=== PATIENT | female | born 1960 | race Caucasian/White ===

== ENCOUNTER → 2017-06-16 10:17 | Outpatient (CLI) | payer MEDICARE, BC, SELFPAY ==
--- NOTE | 2017-06-16 10:24 | XR_ITS ---
XR chest 2V HISTORY: ITS.REASON: BRONCHITIS ORDERING PHYSICIAN: MAYCO Stephens PATIENT AGE: 57 years COMPARISON: 12/05/2013 FINDINGS: The cardiomediastinal silhouette and pulmonary vascularity are within normal limits. Patchy density is present in the lingula consistent with an area of atelectasis or infiltrate with a slightly elevated left hemidiaphragm.. No acute bony abnormalities. IMPRESSION: Atelectasis or infiltrate within the lingula
== END ==
PROVIDERS: PCP Family Medicine; Visit Provider Physician Assistant
DX: J40 Bronchitis, not specified as acute or chronic (principal)
CPT/HCPCS: 71046; 87070; 87077; 87205

== ENCOUNTER → 2017-06-25 10:56 | Outpatient (CLI) | payer MEDICARE, BC, SELFPAY ==
--- NOTE | 2017-06-25 11:01 | XR_ITS ---
XR chest 2V HISTORY: Follow-up pneumonia ITS.REASON: LINGULAR PNEUMONIA ORDERING PHYSICIAN: MAYCO Stephens PATIENT AGE: 57 years COMPARISON: 06/16/2017 FINDINGS: The cardiomediastinal silhouette and pulmonary vascularity are within normal limits. The lungs are clear without infiltrates, suspicious nodules, or pleural effusions. The lingular pneumonia has improved No acute bony abnormalities. IMPRESSION: Negative chest, no acute finding, resolved lingular pneumonia
== END ==
PROVIDERS: PCP Physician Assistant; Visit Provider Physician Assistant
DX: J18.9 Pneumonia, unspecified organism (principal)
CPT/HCPCS: 71046

== ENCOUNTER → 2017-11-08 13:34 | Outpatient (CLI) | payer MEDICARE, BC, SELFPAY ==
--- NOTE | 2017-11-08 13:43 | XR_ITS ---
XR chest 2V HISTORY: ITS.REASON: DECREASED BREATH SOUNDS ORDERING PHYSICIAN: Darlyn Paul MD PATIENT AGE: 57 years COMPARISON: 06/25/2018 FINDINGS: The cardiomediastinal silhouette and pulmonary vascularity are within normal limits. There is mild hyperinflation. No lobar consolidation or collapse. There is mild coarsening of bronchovascular markings. Minimal atelectatic February changes are present in each are clear space inferiorly. No acute bony anomalies IMPRESSION: Hyperinflation with coarsened bronchovascular markings which may be seen with COPD, asthma, or bronchitis.
== END ==
PROVIDERS: Visit Provider Emergency Medicine
DX: R06.89 Other abnormalities of breathing (principal)
CPT/HCPCS: 71046

== ENCOUNTER → 2017-12-16 08:30 | Outpatient (CLI) | payer MEDICARE, BC, SELFPAY ==
--- NOTE | 2017-12-16 08:33 | CT_ITS ---
CT lung screening EXAM: CT LUNG LOW DOSE WO CONTRAST HISTORY: Asymptomatic with 46 pack-year smoking history ITS.REASON: CURRENT SMOKER ORDERING PHYSICIAN: Keke Young MD PATIENT AGE: 57 years COMPARISON: None TECHNIQUE: The exam was performed on a GE Light Speed [address] scanner using 2.90 mGy CTDI. A low dose helical CT CHEST was performed on a multi-detector scanner. All CT scans at the facility use one or more dose reduction, viz: automated exposure control, ma/kV adjustment per patient size (including targeted exams where dose is matched to indication, i.e. head), or iterative reconstruction technique. The LDCT was performed in a facility that meets the criteria for the screening program. Data regarding this exam was submitted to ACR which is an approved registry. The order for this exam indicates that it came as a result of a lung cancer screening counseling shard decision-making visit that included all the elements required of such a visit including smoking cessation. The radiologist interpreting this exam meets the [facility] criteria for the LDCT lung cancer screening program. The exam is reported using the Lung-RADS classification scale and reported to the ACR registry. NOTE: This study was performed for the specific purposes of lung cancer screening and is not an alternative to diagnostic chest CT. RADIATION DOSE: CTDI vol(CT dose Index-volume) = 2.90mG DLP (Dose Length Product) = 90.38 mGcm FINDINGS: There are scattered centrilobular groundglass opacities in both upper lobes and in the superior segment of both lower lobes. These measure up to 8 mm.. There are centrilobular emphysematous changes. No effusions. Scattered small nodes are present in the mediastinum. Mild bronchial thickening noted. IMPRESSION: 1. Lung RADS Category: 4, mildly suspicious/indeterminate regarding the scattered centrilobular groundglass nodules. This could be postinflammatory or infectious in nature. One cannot exclude the possibility of a neoplastic process. Therefore, three-month CT follow-up is suggested without and with contrast. If patient has signs and symptoms of pneumonia then would suggest treatment 2. Other findings: No other pertinent findings evident RECOMMENDATIONS: [address] without and with contrast
--- NOTE | 2017-12-16 08:33 | MM_ITS ---
MM Dig screening mamm BI w/CAD CAD Screening COMPARISON: Digital mammograms 01/13/2013 INDICATION: There is no personal or family history of breast cancer. There is been previous bilateral breast reduction surgery TECHNIQUE: Standard CC and MLO images were obtained. R2 CAD reviewed. FINDINGS: Moderate fibroglandular densities are seen in the central portions of both breasts. There is very little post surgical scarring in either breast. There are few scattered benign-appearing calcifications in each breast. There is no suspicious lesion and no suspicious microcalcifications. IMPRESSION: Fibrofatty parenchyma no suspicious lesion seen BI-RADS Category: 2 Benign Finding(s) RECOMMENDED FOLLOW-UP: 1YR - 1 YEAR FOLLOW-UP (A letter has been sent to the patient regarding results of the study.)
--- NOTE | 2017-12-16 08:34 | XR_ITS ---
XR DEXA axial skeleton HISTORY: ITS.REASON: POSTMENOPAUSAL ORDERING PHYSICIAN: Keke Young MD PATIENT AGE: 57 years COMPARISON: 01/13/2013 FINDINGS: The BMD measured at the Left femoral neck is 0.933 g/cm squared with a T score of -0.8. This is considered Normal according to the World Health Organization criteria. Fracture risk is low. Treatment is advised. L1 L4 density is a T score of -0.6 and has decreased by 1.7%. The hip density has decreased by 4%. IMPRESSION: Normal bone density with low fracture risk. Recommend follow-up exam December 2019
== END ==
PROVIDERS: PCP Physician Assistant; Visit Provider Family Medicine
DX: Z12.31 Encounter for screening mammogram for malignant neoplasm of breast (principal); Z78.0 Asymptomatic menopausal state; Z87.891 Personal history of nicotine dependence; Z12.2 Encounter for screening for malignant neoplasm of respiratory organs
CPT/HCPCS: 77067; 77080

== ENCOUNTER → 2018-01-24 08:53 | Outpatient (CLI) | payer MEDICARE, BC, SELFPAY | PROVIDERS: PCP Family Medicine; Visit Provider Family Medicine | DX: R07.9 Chest pain, unspecified (principal) | CPT/HCPCS: 93017 ==

== ENCOUNTER → 2018-12-01 15:14 | Outpatient (CLI) | payer MEDICARE, BC, SELFPAY ==
--- NOTE | 2018-12-01 15:25 | XR_ITS ---
PROCEDURE: XR CHEST 2V CLINICAL HISTORY: COPD Cough, shortness of air, smoker COMPARISON: CXR2V XR chest 2V from 06/16/2017 CXR2V XR chest 2V from 06/25/2017 CXR2V XR chest 2V from 11/08/2017 FINDINGS: The cardiomediastinal silhouette and pulmonary vascularity are within normal limits. There is mild coarsening of the bronchovascular markings which may be related to chronic peribronchial inflammatory change. No lobar consolidation or collapse. No acute bony abnormalities. IMPRESSION: Chronic changes, no change from 11/08/2017 with no acute finding Dictated by: Neo Hawkins MD 12/01/2018 17:45 Signed by: <Electronically signed by Neo Hawkins MD in [place]> 12/01/2018 17:45
== END ==
PROVIDERS: PCP Family Medicine; Visit Provider Emergency Medicine
DX: J44.1 Chronic obstructive pulmonary disease with (acute) exacerbation (principal)
CPT/HCPCS: 71046

== ENCOUNTER → 2020-12-04 11:18 | Outpatient (CLI) | payer MEDICARE, BC, SELFPAY ==
[2020-12-04 12:42] LABS: Blood Urea Nitrogen 7 mg/dl (7-17); Estimated Glomerular Filt Rate 73 ml/min (>60); GFR (African American) 88 ML/MIN (>60)
--- NOTE | 2020-12-04 14:19 | CT_ITS ---
PROCEDURE: CT ABDOMEN PELVIS W CON CLINICAL INDICATION: RLQ ABD PAIN COMPARISON: CT ABDPELW CT ABD PELVIS W/ CONTRAST from 01/19/2013 TECHNIQUE: IV Contrast: 75ML Isovue 370 Oral Contrast None Axial images obtained with sagittal and coronal reformats. All CT scans at the facility use one or more dose reduction, viz: automated exposure control, ma/kV adjustment per patient size (including targeted exams where dose is matched to indication, i.e. head), or iterative reconstruction technique. FINDINGS: The liver, gallbladder, spleen and pancreas have an unremarkable appearance. In the upper pole of the right kidney posteriorly there is an ill-defined 2 cm hypodensity. In the mid polar region of the right kidney anteriorly there is a 2.5 cm area of decreased density and in the lower pole of the right kidney there is a 1.5 cm area of decreased attenuation. The left kidney has an unremarkable appearance. There is some minimal haziness of the anterior pararenal fat on the right medially. There is mild dilatation of the infrarenal abdominal aorta at 2.5 cm. No intestinal obstruction or free air. The appendix is not clearly delineated. There is chris colonic diverticulosis. No evidence of diverticulitis. No pelvic mass or abnormal fluid collection apparent. There is mild thickening of the urinary bladder which may be due to nondistention. The bowel gas pattern is nonspecific with nondistended air-fluid levels within the small bowel which could be seen with ileus or enteritis. No evidence of bowel obstruction. Oral contrast was given most of which is in the colon. No acute bony finding. IMPRESSION: 1. There are at least 3 hypodense areas of the right kidney. This could be due to right-sided pyelonephritis. Please correlate with clinical parameters. Neoplastic masses of the right kidney is not excluded imaging vega. 2. The appendix is not clearly identified. No evidence of appendicitis. 3. Pancolonic diverticulosis. No evidence of diverticulitis. 4. Scattered air-fluid levels within nondistended small bowel nonspecific but could be seen with enteritis or ileus. Dictated by: Neo Hawkins MD 12/04/2020 15:15 Neo Hawkins MD in [place] 12/04/2020 15:15
== END ==
PROVIDERS: PCP Family Medicine; Visit Provider Nurse Practitioner Family
DX: R10.31 Right lower quadrant pain (principal)
CPT/HCPCS: 36415; 74177; 82565; 84520; Q9967

== ENCOUNTER → 2020-12-23 13:01 | Outpatient (CLI) | payer MEDICARE, BC, SELFPAY ==
--- NOTE | 2020-12-23 13:01 | MM_ITS ---
PROCEDURE: MM DIG SCREENING MAMM BI W/CAD Digital Breast Tomosynthesis Included CLINICAL INDICATION: screening xmg There is no personal or family history of breast cancer. There has been previous bilateral breast reduction surgery COMPARISON: MG DMSB DIG MAMM-SCREEN JEAN from 01/13/2013 MG [facility] MM Dig screening mamm BI w/CAD from 12/16/2017 TECHNIQUE: Standard CC and MLO images and 3D Tomosynthesis was obtained. R2 CAD reviewed. FINDINGS: Mild to moderate scattered fibroglandular densities are seen throughout both breasts. Couple of benign-appearing microcalcifications right breast. There is very little if any post surgical scarring in either breast. A single CAD marking left breast was reviewed and appears to be benign. There is no suspicious lesion and no suspicious microcalcifications. IMPRESSION: Fibrofatty parenchyma with no suspicious lesions seen BI-RAD Category: 2 Benign Finding(s) FOLLOW-UP: 1YR 1 Year Follow-up (A letter has been sent to the patient regarding results of the study.) Dictated by: Dr. Bashir Collins MD 01/09/2021 08:29 Dr. Bashir Collins MD in [place] 01/09/2021 08:29
--- NOTE | 2020-12-23 13:02 | US_ITS ---
PROCEDURE: US TRANSVAGINAL CLINICAL INDICATION: post menopausal bleeding COMPARISON: US PTV US PELVIS-TRANSVAGINAL ONLY from 01/13/2013 FINDINGS: This exam is very limited technically. The fundus of the uterus is not well demonstrated. That is the area of the previously noted fibroid on 01/13/2013. MRI of the pelvis may provide further evaluation. The right ovary is not demonstrated. UTERUS: 6cm x 3cmx 3cm with a combined endometrial thickness of 2.2mm LEFT OVARY: [id number] with a volume of 2.2ml. No cul-de-sac fluid. IMPRESSION: Limited pelvic ultrasound with the uterine fundus not well demonstrated. Consider MRI for further evaluation. The right ovary also is not seen. No acute finding apparent. Dictated by: Neo Hawkins MD 12/24/2020 17:55 Neo Hawkins MD in [place] 12/24/2020 17:55
== END ==
PROVIDERS: PCP Family Medicine; Visit Provider Nurse Practitioner Obstetrics & Gynecology
DX: Z12.31 Encounter for screening mammogram for malignant neoplasm of breast (principal); N95.0 Postmenopausal bleeding
CPT/HCPCS: 76830; 77063; 77067

== ENCOUNTER → 2021-03-01 10:35 | Outpatient (CLI) | payer MEDICARE, BC, SELFPAY ==
--- NOTE | 2021-03-01 10:48 | XR_ITS ---
PROCEDURE INFORMATION: Exam: XR Chest Exam date and time: 03/01/2021 10:48 AM Age: 60 years old Clinical indication: Shortness of breath; Additional info: Sob- covid patient TECHNIQUE: Imaging protocol: XR of the chest. Views: 1 view. COMPARISON: CR XR CHEST 2V 12/01/2018 3:28 PM FINDINGS: Lungs: Mild left basilar airspace opacity, may be early pneumonia. Right lung clear. Pleural spaces: Unremarkable. No pleural effusion. No pneumothorax. Heart/Mediastinum: Unremarkable. No cardiomegaly. Bones/joints: Unremarkable. IMPRESSION: Mild left basilar airspace opacity, may be early pneumonia.
[2021-03-01 12:16] LABS: Basophils # 0.1 K/mm3 (0-0.2); Basophils % 0.4 % (0.1-2.0); Eosinophils % 0.1 % (0.1-12.0); Hematocrit 44.5 % (37.0-47.0); Hemoglobin 15.6 g/dL (12.2-16.2); Lymphocytes # 3.3 K/mm3 (0.7-4.5); Lymphocytes % 19.5 % (10-50); Mean Corpuscular Hemoglobin 30.9 pg (27.0-31.2); Mean Corpuscular Volume 88.1 fl (81-99); Mean Platelet Volume 9.2 fl (7.4-10.4); Monocytes # 0.5 K/mm3 (0.1-1.0); Neutrophils # 13.1 K/mm3 (1.8-7.8); Platelet Count 366 K/mm3 (142-424); Red Blood Count 5.05 M/mm3 (4.20-5.40); Red Cell Distribution Width 14.4 % (11.5-17.5)
[2021-03-01 12:31] LABS: MANUAL DIFFERENTIAL MANUAL DIFFERENTIAL (MANUAL DIFF)
[2021-03-01 14:33] LABS: Lymphocytes % 21 % (10-50); Monocytes % 3 % (2-9); Neutrophils % 76 % (42-76); Platelet Estimate Normal; RBC Morphology Normal; Total Cells Counted 100
== END ==
PROVIDERS: PCP Family Medicine; Visit Provider Nurse Practitioner
DX: Z01.818 Encounter for other preprocedural examination (principal); Z20.822 Contact with and (suspected) exposure to COVID-19
CPT/HCPCS: 36415; 71045; 85007; 85025

== ENCOUNTER → 2022-07-08 13:48 | Outpatient (CLI) | payer MEDICARE, BC, SELFPAY ==
--- NOTE | 2022-07-08 13:57 | XR_ITS ---
FINAL REPORT TECHNIQUE: Chest PA & Lateral CLINICAL HISTORY: COPD COMPARISON: 03/01/2021 FINDINGS: 2 views of the chest were performed. The heart size is normal. The mediastinum is within normal limits. There is no acute cardiopulmonary process. There is scarring in the left upper lobe. There are no pleural effusions. There is no pneumothorax. The bony thorax appears intact. IMPRESSION: No acute cardiopulmonary process. Reviewed, Interpreted and Dictated by Sj Hallman MD Transcribed by Angela Tucker Authenticated and [facility]
== END ==
PROVIDERS: PCP Physician Assistant; Visit Provider Physician Assistant
DX: J44.1 Chronic obstructive pulmonary disease with (acute) exacerbation (principal)
CPT/HCPCS: 71046

== ENCOUNTER → 2022-07-13 10:46 | Outpatient (CLI) | payer MEDICARE, BC, SELFPAY | PROVIDERS: PCP Physician Assistant; Visit Provider Physician Assistant | DX: J44.1 Chronic obstructive pulmonary disease with (acute) exacerbation (principal) | CPT/HCPCS: 94060 ==

== ENCOUNTER 2022-12-20 08:57 | Emergency (ER) | payer MEDICARE, BC, SELFPAY ==
[2022-12-20 09:15] VITALS: BP 136/67; PULSE 71; RESP 18; TEMP 36.6; O2SAT 98; BMI 34.5
--- NOTE | 2022-12-20 09:45 | EXP.UTC ---
Discharge Plan Disposition Patient Disposition: Home, Self-Care Condition: Good Prescriptions Prescriptions: New methylprednisolone [Medrol (Lenny)] 4 mg tablets,dose pack See Rx Instructions .Route .COMPLEX 6 Days Qty: 21 0RF Rx Instructions: taper pack; No Action aripiprazole 5 mg tablet 5 mg PO DAILY Qty: 30 lisinopril 2.5 mg tablet 2.5 mg PO DAILY Qty: 30 bisoprolol fumarate 5 mg tablet 5 mg PO DAILY Qty: 15 meloxicam 15 mg tablet 15 mg PO DAILY budesonide-formoterol [Symbicort] 160-4.5 mcg/actuation HFA aerosol inhaler 2 puff INHALATION BID venlafaxine 150 mg capsule,extended release 24hr 150 mg PO DAILY cyclobenzaprine 10 mg Tablet 10 mg PO BID PRN (Reason: Muscle Spasm) Qty: 20 2RF Referrals Follow up/Referrals: Frances Butterfield PA [Primary Care Provider] - See instructions Activity Restrictions/Add. Instructions Additional Instructions/Restrictions: Continue taking Flexeril as prescribe Start oral Medrol dose pack tomorrow Follow up with your Family Doctor if no improvement or any worsening of symptoms Return if needed Straight to ER if any life threatening symptoms Clinical Impressions Clinical Impression: Low back pain with sciatica Qualifiers: Chronicity: unspecified Back pain laterality: right Sciatica laterality: sciatica of right side Qualified Code(s): M54.41 - Lumbago with sciatica, right side Instructions Patient Instructions: DI for Sciatica, DI for Back Pain With Sciatica, Methylprednisolone Discharge ED Provider: Carmelina Bartholomew [facility] General Stated complaint: back pain, no accident Mode of Arrival: Ambulatory Source of Information: Patient Limitations: No Limitations Time Seen by Provider: 12/20/22 09:51 HEENT Symptoms (Recalled from RN notes): No Resp Symptoms (Recalled from RN notes): No Skin Symptoms (Recalled from RN notes): No MS Symptoms (Recalled from RN notes): Yes Functional Status (Recalled from RN notes): n/a History of Present Illness Provider Complaint: Patient states that she has been having pain in her right lower back area since Wed States that now it is going down into her buttock area and upper leg Denies known injury States that she thought she pulled a muscle and has been on Flexeril but not helped much Denies loss of control of bowel or bladder Related Data Home Medications Medication Instructions Recorded Confirmed aripiprazole 5 mg tablet 5 mg PO DAILY . #30 tabs 08/01/18 12/20/22 bisoprolol fumarate 5 mg tablet 5 mg PO DAILY . #15 tabs 08/01/18 12/20/22 lisinopril 2.5 mg tablet 2.5 mg PO DAILY . #30 tabs 08/01/18 12/20/22 budesonide-formoterol HFA 160 2 puff inhalation BID 12/12/20 12/31/20 mcg-4.5 mcg/actuation aerosol inhaler (Symbicort) meloxicam 15 mg tablet 15 mg PO DAILY . 12/12/20 12/20/22 venlafaxine 150 mg 150 mg PO DAILY . 12/31/20 12/20/22 capsule,extended release 24 hr Previous Rx's Medication Instructions Recorded cyclobenzaprine 10 mg tablet 10 mg PO BID PRN Muscle Spasm #20 12/17/22 tabs methylprednisolone 4 mg tablets in See Rx Instructions .Route 12/20/22 a dose pack (Medrol (Lenny)) .COMPLEX 6 days #21 tabs Allergies Allergy/AdvReac Type Severity Reaction Status Date / Time No Known Allergies Allergy Verified 12/20/22 09:29 Worker's Comp Is this a Worker's Comp case?: No [facility] Disclaimer: The information contained in this section may have been updated after the patient was seen, as this information can be updated by other users. Social History Smoking Status: Current every day smoker tobacco type: cigarettes packs per day: 1 alcohol intake: current substance use type: denies use current occupational status: retired and disabled Travel in the last 8 weeks: None household members: spouse housing: house ROS Obtained: Yes All systems reviewed & no additional complaints except as d
[2022-12-20 10:16] VITALS: BP 136/67; PULSE 71; RESP 18; TEMP 36.6; O2SAT 98
== END 2022-12-20 10:16 | disposition home or self-care (01) ==
PROVIDERS: Emergency Provider Nurse Practitioner; PCP Physician Assistant
DX: M54.41 Lumbago with sciatica, right side (principal); F17.210 Nicotine dependence, cigarettes, uncomplicated
CPT/HCPCS: 96372; 99204; 99212; G0463

== ENCOUNTER 2023-01-13 08:06 | Emergency (ER) | payer MEDICARE, BC, SELFPAY ==
[2023-01-13 08:10] VITALS: BP 141/73; PULSE 77; RESP 18; TEMP 36.7; O2SAT 96; BMI 33.8
--- NOTE | 2023-01-13 08:10 | XR_ITS ---
FINAL REPORT CLINICAL HISTORY: Nonspecific cough COMPARISON: 07/08/2022 FINDINGS: Two views of the chest were obtained. The heart size and pulmonary vascularity are within normal limits. The mediastinum is normal. There is mild atelectasis or scar in the lung bases. There is no pneumothorax. The bony thorax is intact. IMPRESSION: Mild atelectasis or scar in the lung bases. Reviewed, Interpreted and Dictated by Omar Wolf III, MD Transcribed by Angela Tucker Authenticated and [facility]
--- NOTE | 2023-01-13 08:35 | EXP.UTC ---
Discharge Plan Disposition Patient Disposition: Home, Self-Care Condition: Good Prescriptions Prescriptions: New azithromycin [azithromycin] 250 mg tablet 250 mg PO DIRECTED Qty: 6 0RF Rx Instructions: Take two (2) tablets on day #1, then one (1) tablet day #2 thru #5 benzonatate 100 mg capsule 100 mg PO BID PRN (Reason: cough) Qty: 14 0RF prednisone [prednisone] 20 mg tablet 20 mg PO BID Qty: 10 0RF Rx Instructions: start tomorrow fluticasone propion-salmeterol [Advair Diskus] 100-50 mcg/dose blister with device 1 inh inhalation BID Qty: 60 0RF Combivent Respimat 20-100 mcg/actuation mist 1 puff inhalation QID Qty: 4 0RF Rx Instructions: space evenly during waking hours albuterol sulfate 2.5 mg /3 mL (0.083 %) solution for nebulization 2.5 mg inhalation QID PRN (Reason: shortness of breath or wheezing) Qty: 90 0RF (DME) nebulizer and compressor Device See Rx Instructions .Route Qty: 1 0RF Rx Instructions: As directed Discontinued budesonide-formoterol [Symbicort] 160-4.5 mcg/actuation HFA aerosol inhaler 2 puff INHALATION BID No Action aripiprazole 5 mg tablet 5 mg PO DAILY Qty: 30 lisinopril 2.5 mg tablet 2.5 mg PO DAILY Qty: 30 bisoprolol fumarate 5 mg tablet 5 mg PO DAILY Qty: 15 venlafaxine 150 mg capsule,extended release 24hr 150 mg PO DAILY Referrals Follow up/Referrals: Frances Butterfield PA [Primary Care Provider] - See instructions Activity Restrictions/Add. Instructions Additional Instructions/Restrictions: Start antibiotic today. Be sure to complete entire prescription even if feeling better Tylenol and ibuprofen as needed for pain or fever Humidifier/vaporizer/hot steamy shower Follow-up with primary care tomorrow. Follow-up immediately in the ER of the [facility] for new or worsening symptoms or no noticeable improvement over the next 48-72 hours. Stop smoking Inhaler every 4-6 hours as needed. Should help open airways improved cough, wheezing, shortness of breath Hay Benjamin will not cause drowsiness to use at bedtime to help stop cough so that she can get some sleep Start steroids today. Helps with inflammation therefore coughing and wheezing. Follow directions on package. Clinical Impressions Clinical Impression: COPD with acute exacerbation Instructions Patient Instructions: Chronic Obstructive Pulmonary Disease, DI for Chronic Obstructive Pulmonary Disease Discharge ED Provider: Baron ([facility])Sharita [facility] HPI General Stated complaint: cough Mode of Arrival: Ambulatory Source of Information: Patient Limitations: No Limitations Time Seen by Provider: 01/13/23 08:36 Description of Symptoms (Recalled from Triage Doc. by RN): Pt stated that wednesday she started with cough, upper chest congestion, and wheezing. HEENT Symptoms (Recalled from RN notes): Yes Resp Symptoms (Recalled from RN notes): No Skin Symptoms (Recalled from RN notes): No MS Symptoms (Recalled from RN notes): No Functional Status (Recalled from RN notes): n/a History of Present Illness Provider Complaint: 62 yr old female presents for soa, wheezing,cough and chest congestion. Related Data Home Medications Medication Instructions Recorded Confirmed aripiprazole 5 mg tablet 5 mg PO DAILY . #30 tabs 08/01/18 01/13/23 bisoprolol fumarate 5 mg tablet 5 mg PO DAILY . #15 tabs 08/01/18 01/13/23 lisinopril 2.5 mg tablet 2.5 mg PO DAILY . #30 tabs 08/01/18 01/13/23 venlafaxine 150 mg 150 mg PO DAILY . 12/31/20 01/13/23 capsule,extended release 24 hr Previous Rx's Medication Instructions Recorded albuterol sulfate 2.5 mg/3 mL 2.5 mg (3 mL) inhalation QID PRN 01/13/23 (0.083 %) solution for nebulization shortness of breath or wheezing #90 mL azithromycin 250 mg tablet 250 mg PO DIRECTED #6 tabs 01/13/23 benzonatate 100 mg capsule 100 mg PO BID PRN cough #14 caps 01/13/23 fluticasone 100 mcg-salmeterol 50 1 inh inhala
[2023-01-13 09:18] VITALS: BP 141/73; PULSE 77; RESP 18; TEMP 36.7; O2SAT 96
== END 2023-01-13 09:18 | disposition home or self-care (01) ==
PROVIDERS: Emergency Provider Nurse Practitioner Family; PCP Physician Assistant
DX: J44.1 Chronic obstructive pulmonary disease with (acute) exacerbation (principal); F17.210 Nicotine dependence, cigarettes, uncomplicated
CPT/HCPCS: 71046; 96372; 99212; 99214; G0463

== ENCOUNTER 2023-02-14 07:04 | Emergency (ER) | payer MEDICARE, BC, SELFPAY ==
[2023-02-14 07:05] VITALS: BP 108/69; PULSE 88; RESP 16; TEMP 36.7; O2SAT 98; BMI 35.3
[2023-02-14 07:23] VITALS: BP 108/69
--- NOTE | 2023-02-14 07:23 | XR_ITS ---
PROCEDURE INFORMATION: Exam: XR Chest Exam date and time: 02/14/2023 7:24 AM Age: 62 years old Clinical indication: Wheezing; Additional info: Lll posterior wheezes. Former smoker. Copd x 1 year TECHNIQUE: Imaging protocol: Radiologic exam of the chest. Views: 1 view. COMPARISON: CR XR CHEST 2V 01/13/2023 8:10 AM FINDINGS: Lungs: Unremarkable. No consolidation. Pleural spaces: Unremarkable. No pleural effusion. No pneumothorax. Heart/Mediastinum: Unremarkable. No cardiomegaly. Bones/joints: Unremarkable. IMPRESSION: No acute findings.
--- NOTE | 2023-02-14 07:24 | HMH.EDGENADL ---
Discharge Plan Disposition Patient Disposition: Home, Self-Care Prescriptions Prescriptions: New ondansetron 4 mg tablet,disintegrating 4 mg PO Q6H PRN (Reason: nausea and vomiting) Qty: 10 0RF Paxlovid 300 mg (150 mg x 2)-100 mg tablets,dose pack See Rx Instructions PO .COMPLEX Qty: 30 0RF Rx Instructions: take TWO 150 mg tablets of nirmatrelvir with ONE 100 mg tablet of ritonavir twice daily for 5 days No Action aripiprazole 5 mg tablet 5 mg PO DAILY Qty: 30 lisinopril 2.5 mg tablet 2.5 mg PO DAILY Qty: 30 bisoprolol fumarate 5 mg tablet 5 mg PO DAILY Qty: 15 venlafaxine 150 mg capsule,extended release 24hr 150 mg PO DAILY azithromycin [azithromycin] 250 mg tablet 250 mg PO DIRECTED Qty: 6 0RF Rx Instructions: Take two (2) tablets on day #1, then one (1) tablet day #2 thru #5 benzonatate 100 mg capsule 100 mg PO BID PRN (Reason: cough) Qty: 14 0RF prednisone [prednisone] 20 mg tablet 20 mg PO BID Qty: 10 0RF Rx Instructions: start tomorrow fluticasone propion-salmeterol [Advair Diskus] 100-50 mcg/dose blister with device 1 inh inhalation BID Qty: 60 0RF Combivent Respimat 20-100 mcg/actuation mist 1 puff inhalation QID Qty: 4 0RF Rx Instructions: space evenly during waking hours albuterol sulfate 2.5 mg /3 mL (0.083 %) solution for nebulization 2.5 mg inhalation QID PRN (Reason: shortness of breath or wheezing) Qty: 90 0RF (DME) nebulizer and compressor Device See Rx Instructions .Route Qty: 1 0RF Rx Instructions: As directed Referrals Follow up/Referrals: Keke Young MD [Primary Care Provider] - See instructions Activity Restrictions/Add. Instructions Additional Instructions/Restrictions: For you: Call your family doctor to establish care for this visit to the emergency department and schedule follow-up within 48 hours to ensure improvement. If you have any worsening of your condition or any other concerning signs or symptoms, return to the emergency department or your primary care doctor for further evaluation. Take Tylenol 1000 mg every 6 hours (4 times daily) and ibuprofen 400 mg every 6 hours (4 times daily) as needed with food and water to prevent GI upset and kidney damage. Paxlovid as described, talk to the pharmacist about this. 3 pills twice a day for 5 days. Zofran (nausea medication) sent to pharmacy as well. You can put this on your tongue every 6 hours as needed. For your granddaughter: Call your wreath maker to establish care for this visit to the emergency department and schedule follow-up within 48 hours to ensure improvement. If patient has any worsening, or any other concerning signs or symptoms, return to the emergency department or your primary care doctor for further evaluation. The symptoms include changes in color (pale, blue, or sustained redness), muscle tone (flaccid/limp, or sustained muscle stiffness), breathing (too slow, too fast, retractions), or mental status (inconsolable or unarousable), absence of urine or stool output, inability to tolerate oral intake, among others. Continue suctioning patient. Nose Bailey can be used in place of bulb for improved suctioning. Place 5 to 10 drops of saline in each nostril and wait for 1 to 2 minutes prior to suctioning. This will allow time for saline to loosen secretions and improve suctioning. For best results, suction patient before bed, naps, and meals, as often as needed. Clinical Impressions Clinical Impression: COVID-19, Generalized weakness Discharge ED Provider: Chyu Richardson General Adult HPI General Chief complaint: Upper Respiratory Infection Stated complaint: headache,body aches,fever, diarrhea Time Seen by Provider: 02/14/23 07:07 Mode of Arrival: Ambulatory Source of Information: Patient Limitations: No Limitations Description of Symptoms (Recalled from ER Triage Doc. by RN): 62 yo F presents to ED with c/o
[2023-02-14 07:27] LABS: Influenza A, PCR Not Detected (NotDetected); Influenza B, PCR Not Detected (NotDetected)
--- NOTE | 2023-02-14 07:28 | PC.NURSE ---
portable xray at bedside
[2023-02-14 08:11] LABS: Coronavirus 19, PCR Detected (NotDetected)
[2023-02-14 08:21] VITALS: BP 126/74; PULSE 88; RESP 20; TEMP 36.6
[2023-02-14 08:27] VITALS: BP 126/74; PULSE 74; RESP 16; TEMP 36.7
== END 2023-02-14 08:27 | disposition home or self-care (01) ==
PROVIDERS: Emergency Provider Emergency Medicine; PCP Family Medicine
DX: U07.1 COVID-19 (principal); R51.9 Headache, unspecified; R50.9 Fever, unspecified; R19.7 Diarrhea, unspecified; R53.1 Weakness; R11.0 Nausea; J44.9 Chronic obstructive pulmonary disease, unspecified; Z87.891 Personal history of nicotine dependence
CPT/HCPCS: 71045; 87636; 99283

== ENCOUNTER 2023-05-06 17:36 | Emergency (ER) | payer MEDICARE, SELFPAY ==
[2023-05-06 18:05] VITALS: BP 178/94; PULSE 94; RESP 18; TEMP 36.8; O2SAT 96; BMI 36.7
--- NOTE | 2023-05-06 18:16 | EXP.UTC ---
Discharge Plan Disposition Patient Disposition: Home, Self-Care Condition: Good Prescriptions Prescriptions: New prednisone 10 mg tablet 10 mg PO DIRECTED 9 Days Qty: 21 0RF Rx Instructions: Take 4 tablets daily for 3 days, then take 2 tablets daily for 3 days, then take 1 tablet daily for 3 days, then stop. benzonatate [benzonatate] 100 mg capsule 100 mg PO TIDP PRN (Reason: Cough) Qty: 30 0RF amoxicillin [amoxicillin] 875 mg tablet 875 mg PO Q12H Qty: 20 0RF ondansetron 4 mg Tablet,Disintegrating 4 mg PO Q8H PRN (Reason: Nausea) Qty: 12 0RF No Action aripiprazole 5 mg tablet 5 mg PO DAILY Qty: 30 lisinopril 2.5 mg tablet 2.5 mg PO DAILY Qty: 30 bisoprolol fumarate 5 mg tablet 5 mg PO DAILY Qty: 15 venlafaxine 150 mg capsule,extended release 24hr 150 mg PO DAILY prednisone [prednisone] 20 mg tablet 20 mg PO BID Qty: 10 0RF Rx Instructions: start tomorrow fluticasone propion-salmeterol [Advair Diskus] 100-50 mcg/dose blister with device 1 inh inhalation BID Qty: 60 0RF Combivent Respimat 20-100 mcg/actuation mist 1 puff inhalation QID Qty: 4 0RF Rx Instructions: space evenly during waking hours albuterol sulfate 2.5 mg /3 mL (0.083 %) solution for nebulization 2.5 mg inhalation QID PRN (Reason: shortness of breath or wheezing) Qty: 90 0RF (DME) nebulizer and compressor Device See Rx Instructions .Route Qty: 1 0RF Rx Instructions: As directed Paxlovid 300 mg (150 mg x 2)-100 mg tablets,dose pack See Rx Instructions PO .COMPLEX Qty: 30 0RF Rx Instructions: take TWO 150 mg tablets of nirmatrelvir with ONE 100 mg tablet of ritonavir twice daily for 5 days Referrals Follow up/Referrals: Roshan Young MD [Primary Care Provider] - See instructions Activity Restrictions/Add. Instructions Additional Instructions/Restrictions: Drink plenty of fluids. Take tylenol or ibuprofen for pain or fever. Take the medications as directed. Follow up with your regular doctor. GO TO THE ER FOR ANY WORSENING SYMPTOMS Don't start the oral steroids until tomorrow, since you had the shot here today. Clinical Impressions Clinical Impression: Bronchitis, Pharyngitis, Acute viral syndrome Instructions Patient Instructions: DI for Pharyngitis/Tonsillopharyngitis -- Adult, DI for Acute Bronchitis, Dexamethasone Injection Discharge ED Provider: Chago Fernando [facility] [place] General Stated complaint: sore throat , cough , headache, eyes hurt Time Seen by Provider: 05/06/23 18:13 History of Present Illness Provider Complaint: She states that for the past 2 days she has had malaise, ear pain, sore throat, headache, sinus congestion, chest congestion, and productive cough (greenish sputum). She has a history of COPD. Related Data Home Medications Medication Instructions Recorded Confirmed aripiprazole 5 mg tablet 5 mg PO DAILY . #30 tabs 08/01/18 01/13/23 bisoprolol fumarate 5 mg tablet 5 mg PO DAILY . #15 tabs 08/01/18 01/13/23 lisinopril 2.5 mg tablet 2.5 mg PO DAILY . #30 tabs 08/01/18 01/13/23 venlafaxine 150 mg 150 mg PO DAILY . 12/31/20 01/13/23 capsule,extended release 24 hr Previous Rx's Medication Instructions Recorded albuterol sulfate 2.5 mg/3 mL 2.5 mg (3 mL) inhalation QID PRN 01/13/23 (0.083 %) solution for nebulization shortness of breath or wheezing #90 mL fluticasone 100 mcg-salmeterol 50 1 inh inhalation BID #60 ea 01/13/23 mcg/dose blistr powdr for inhalation (Advair Diskus) ipratropium 20 mcg-albuterol 100 1 puff inhalation QID #4 grams 01/13/23 mcg/actuation mist for inhalation (Combivent Respimat) nebulizer and compressor #1 ea 01/13/23 prednisone 20 mg tablet 20 mg PO BID #10 tabs 01/13/23 nirmatrelvir 300 mg (150 mg See Rx Instructions PO .COMPLEX 02/14/23 x2)-ritonavir 100 mg tablet,dose #30 tabs pack (Paxlovid) amoxicillin 875 mg tablet 875 mg PO Q12H #20 tabs 05/06/23 benzonatate 100 mg capsule 100 mg PO TIDP PRN Cough #30 caps 05/06/23 ondansetron 4 mg disintegrating 4 mg PO Q8H PRN Nausea #12 tabs 05/06/23 tablet prednisone 10 mg tablet 10 mg PO DIRECTED 9 days #21 05/06/23 tabs Allergies Allergy/AdvReac Type Severity Reaction Status Date / Time No Known Allergies Allergy Verified 05/06/23 18:25 [facility] Disclaimer: The information contained in this section may have been updated after the patient was seen, as this information can be updated by other users. Social History Smoking Status: Former smoker tobacco type: cigarettes packs per day: 1 alcohol intake: current substance use type: denies use current occupational status: retired and disabled Travel in the last 8 weeks: None household members: spouse housing: house ROS Obtained: Yes All systems reviewed & no additional complaints except as documented Constitutional Constitutional: Reports chills and Reports fever(s) Eyes Eyes: Denies eye discharge ENT Ears, Nose, Mouth, and Throat: Reports as per HPI Cardiovascular Cardiovascular: Denies chest pain Respiratory Respiratory: Denies shortness of breath, Reports chest congestion, Reports cough, Denies stridor and Denies wheezing Gastrointestinal Gastrointestingal: Reports nausea; Denies abdominal pain, constipation, cramping, diarrhea or vomiting Musculoskeletal Musculoskeletal: Denies arthralgias Integumentary/Breasts Skin/Breast: Denies rash Neurologic Neurologic: Denies paresthesias Allergic/Immunologic Allergic/Immunologic: Denies wheezing Physical Exam General General appearance: alert and in no apparent distress Eye Eye exam: Present normal appearance, PERRL and EOMI ENT ENT exam: Present mucous membranes moist and normal external ear exam Expanded ENT Exam External ear exam: Present normal external inspection TM/Canal exam: Bilateral TM: erythema and bulging Nose exam: Absent sinus tenderness Nasal speculum exam: Bilateral: normal Mouth exam: Present normal external inspection; Absent drooling Teeth exam: Present normal inspection Throat exam: Present tonsillar erythema and tonsillomegaly Neck Neck exam: Present normal inspection, full ROM and trachea midline; Absent tenderness, lymphadenopathy or thyromegaly Chest Chest inspection: Present normal inspection and symmetric chest wall rise; Absent tenderness or rash Respiratory Respiratory exam: Present normal lung sounds bilaterally; Absent respiratory distress, wheezes, stridor or accessory muscle use Cardiovascular Cardiovascular exam: Present regular rate, normal rhythm and normal heart sounds Abdominal Exam Abdominal exam: Present soft; Absent distention, tenderness, guarding, rebound or rigidity Extremities Exam Extremities exam: Present normal inspection, full ROM and normal capillary refill; Absent tenderness or calf tenderness Back Exam Back exam: Present normal inspection and full ROM; Absent tenderness Neurological Exam Neurological exam: Present alert and oriented X3 Psychiatric Psychiatric exam: Present normal affect and normal mood Skin Skin exam: Present warm, dry, intact and normal color Lymphatic Lymphatic Findings: no adenopathy Medical Decision Making Medical Records Medical records reviewed: No I reviewed the patient's medical records. Len[place] Inquiry Pt receiving controlled substance: No Lab Data Lab results reviewed: Yes I reviewed the patient's lab results.
[2023-05-06 18:38] LABS: Influenza A, PCR Not Detected (NotDetected); Influenza B, PCR Not Detected (NotDetected)
[2023-05-06 18:39] LABS: UTC Strep Screen (Rapid) Negative (Negative)
[2023-05-06] MEDS: DEXAMETHASONE 4MG/ML 1ML VIAL 8 MG IM (18:57)
[2023-05-06 19:30] LABS: Coronavirus 19, PCR Detected (NotDetected)
[2023-05-06 19:33] VITALS: BP 178/94; PULSE 94; RESP 18; TEMP 36.8; O2SAT 95
== END 2023-05-06 19:33 | disposition home or self-care (01) ==
PROVIDERS: Emergency Provider Nurse Practitioner Family; PCP Psychiatry & Neurology Sleep Medicine
DX: J20.9 Acute bronchitis, unspecified (principal); J02.9 Acute pharyngitis, unspecified; H92.03 Otalgia, bilateral; R09.81 Nasal congestion; R05.8 Other specified cough; R09.89 Other specified symptoms and signs involving the circulatory and respiratory systems; R11.0 Nausea; R53.81 Other malaise; B34.9 Viral infection, unspecified; J44.9 Chronic obstructive pulmonary disease, unspecified; Z87.891 Personal history of nicotine dependence
CPT/HCPCS: 87636; 87880; 96372; 99212; 99214; G0463

== ENCOUNTER 2023-07-07 17:01 | Emergency (ER) | payer MEDICARE, SELFPAY ==
[2023-07-07 17:03] VITALS: BP 171/78; PULSE 72; RESP 18; TEMP 36.8; O2SAT 96; BMI 38.7
--- NOTE | 2023-07-07 17:04 | ED_ITS ---
<Statement entered by La Badillo DO - 07/07/23 22:40> I was consulted by the RUBINA, and we discussed the complexity of the problems being addressed. I approved the treatment and management plan for this patient's care in the emergency department, thus performing a substantive portion of the medical decision making. La Badillo DO Discharge Plan Disposition Patient Disposition: Home, Self-Care Condition: Good Prescriptions Prescriptions: New ketorolac 10 mg tablet 10 mg PO Q8H PRN (Reason: pain) 3 Days Qty: 10 0RF prednisone 50 mg tablet 50 mg PO DAILY 5 Days Qty: 5 0RF No Action aripiprazole 5 mg tablet 5 mg PO DAILY Qty: 30 lisinopril 2.5 mg tablet 2.5 mg PO DAILY Qty: 30 bisoprolol fumarate 5 mg tablet 5 mg PO DAILY Qty: 15 venlafaxine 150 mg capsule,extended release 24hr 150 mg PO DAILY prednisone [prednisone] 20 mg tablet 20 mg PO BID Qty: 10 0RF Rx Instructions: start tomorrow fluticasone propion-salmeterol [Advair Diskus] 100-50 mcg/dose blister with device 1 inh inhalation BID Qty: 60 0RF Combivent Respimat 20-100 mcg/actuation mist 1 puff inhalation QID Qty: 4 0RF Rx Instructions: space evenly during waking hours albuterol sulfate 2.5 mg /3 mL (0.083 %) solution for nebulization 2.5 mg inhalation QID PRN (Reason: shortness of breath or wheezing) Qty: 90 0RF (DME) nebulizer and compressor Device See Rx Instructions .Route Qty: 1 0RF Rx Instructions: As directed Paxlovid 300 mg (150 mg x 2)-100 mg tablets,dose pack See Rx Instructions PO .COMPLEX Qty: 30 0RF Rx Instructions: take TWO 150 mg tablets of nirmatrelvir with ONE 100 mg tablet of ritonavir twice daily for 5 days prednisone 10 mg tablet 10 mg PO DIRECTED 9 Days Qty: 21 0RF Rx Instructions: Take 4 tablets daily for 3 days, then take 2 tablets daily for 3 days, then take 1 tablet daily for 3 days, then stop. benzonatate [benzonatate] 100 mg capsule 100 mg PO TIDP PRN (Reason: Cough) Qty: 30 0RF amoxicillin [amoxicillin] 875 mg tablet 875 mg PO Q12H Qty: 20 0RF ondansetron 4 mg Tablet,Disintegrating 4 mg PO Q8H PRN (Reason: Nausea) Qty: 12 0RF Paxlovid 300 mg (150 mg x 2)-100 mg tablets,dose pack See Rx Instructions .ROUTE .COMPLEX Qty: 30 0RF Rx Instructions: take TWO 150 mg tablets of nirmatrelvir with ONE 100 mg tablet of ritonavir twice daily for 5 days Referrals Follow up/Referrals: Dewayne Perez, PT [Physical Therapist] - See instructions Roshan Young MD [Primary Care Provider] - See instructions Activity Restrictions/Add. Instructions Additional Instructions/Restrictions: Follow-up with PCP reassess symptoms. Return to ER for any change or worsening of your symptoms as needed. I have referred you to physical therapy please call in the morning to make an appointment. Clinical Impressions Clinical Impression: Low back pain with sciatica Qualifiers: Chronicity: unspecified Back pain laterality: right Sciatica laterality: s ciatica of right side Qualified Code(s): M54.41 - Lumbago with sciatica, right side Instructions Patient Instructions: DI for Sciatica Discharge ED Provider: La Badillo General Adult HPI General Chief complaint: Extremity Problem,Nontraumatic Stated complaint: pain in right knee and down leg Time Seen by Provider: 07/07/23 17:04 History of Present Illness HPI narrative: Patient presents for evaluation of right knee pain and exacerbation of right- sided sciatica. Patient denies trauma. Patient has a longstanding history apparently of sciatica on the right side. Patient reports that she feels that she is having sciatic pain however she is now having significant difficulty with ambulation in her right knee. Patient denies trauma or prolonged sitting and recent travel. Patient denies chest pain shortness of breath fever chills hemoptysis hematochezia melena nausea vomiting diarrhea. Related Data Home Medications Medication Instructions Recorded Confirmed aripiprazole 5 mg tablet 5 mg PO DAILY . #30 tabs 08/01/18 01/13/23 bisoprolol fumarate 5 mg tablet 5 mg PO DAILY . #15 tabs 08/01/18 01/13/23 lisinopril 2.5 mg tablet 2.5 mg PO DAILY . #30 tabs 08/01/18 01/13/23 venlafaxine 150 mg 150 mg PO DAILY . 12/31/20 01/13/23 capsule,extended release 24 hr Previous Rx's Medication Instructions Recorded albuterol sulfate 2.5 mg/3 mL 2.5 mg (3 mL) inhalation QID PRN 01/13/23 (0.083 %) solution for nebulization shortness of breath or wheezing #90 mL fluticasone 100 mcg-salmeterol 50 1 inh inhalation BID #60 ea 01/13/23 mcg/dose blistr powdr for inhalation (Advair Diskus) ipratropium 20 mcg-albuterol 100 1 puff inhalation QID #4 grams 01/13/23 mcg/actuation mist for inhalation (Combivent Respimat) nebulizer and compressor #1 ea 01/13/23 prednisone 20 mg tablet 20 mg PO BID #10 tabs 01/13/23 nirmatrelvir 300 mg (150 mg See Rx Instructions PO .COMPLEX 02/14/23 x2)-ritonavir 100 mg tablet,dose #30 tabs pack (Paxlovid) amoxicillin 875 mg tablet 875 mg PO Q12H #20 tabs 05/06/23 benzonatate 100 mg capsule 100 mg PO TIDP PRN Cough #30 caps 05/06/23 nirmatrelvir 300 mg (150 mg See Rx Instructions PO .COMPLEX 05/06/23 x2)-ritonavir 100 mg tablet,dose #30 tabs pack (Paxlovid) ondansetron 4 mg disintegrating 4 mg PO Q8H PRN Nausea #12 tabs 05/06/23 tablet prednisone 10 mg tablet 10 mg PO DIRECTED 9 days #21 05/06/23 tabs ketorolac 10 mg tablet 10 mg PO Q8H PRN pain 3 days #10 07/07/23 tabs prednisone 50 mg tablet 50 mg PO DAILY 5 days #5 tabs 07/07/23 Allergies Allergy/AdvReac Type Severity Reaction Status Date / Time No Known Allergies Allergy Verified 05/06/23 18:25 [facility] Disclaimer: The information contained in this section may have been updated after the patient was seen, as this information can be updated by other users. Social History Smoking Status: Former smoker tobacco type: cigarettes packs per day: 1 alcohol intake: current substance use type: denies use current occupational status: retired and disabled Travel in the last 8 weeks: None household members: spouse housing: house ROS Obtained: Yes Systems reviewed as appropriate & no additional complaints except as documented Physical Exam General General appearance: alert and in no apparent distress Head Head exam: atraumatic and normal inspection Respiratory Respiratory exam: Present normal lung sounds bilaterally; Absent respiratory distress Cardiovascular Cardiovascular exam: Present regular rate and normal rhythm Abdominal Exam Abdominal exam: Present soft; Absent tenderness Extremities Exam Extremities exam: Present normal inspection and full ROM Expanded Lower Extremity Exam Right: Hip/Pelvis exam: Present normal inspection, tenderness, pelvis stable and hip pain on leg movement; Absent full ROM, swelling, ecchymosis, deformity, dislocation, shortening of leg, pain on hip/pelvis palpation or crepitus Upper leg exam: Present normal inspection and full ROM; Absent tenderness Knee exam: Present normal inspection and full ROM (With nonweightbearing); Absent tenderness (On nonweightbearing) Lower leg exam: Present normal inspection, full ROM (On nonweightbearing) and Achilles tendon intact; Absent tenderness, swelling, palpable cord or Homans' sign Ankle exam: Present normal inspection and full ROM; Absent tenderness Back Exam Back exam: Present normal inspection and tenderness (Over the right SI joint); Absent full ROM (Dizziness full extension) Neurological Exam Neurological exam: Present alert and oriented X3 Medical Decision Making Medical Records Medical records reviewed: Yes I reviewed the patient's medical records. Lencho Inquiry Pt receiving controlled substance: No Vital Signs: 07/07/23 17:03 07/07/23 19:11 Temperature 98.3 F 98.3 F Temperature Source Oral Oral Pulse Rate 70 Pulse Rate [Left Radial] 72 Respiratory Rate 18 19 Blood Pressure 160/70 H Blood Pressure [Right Arm] 171/78 H Blood Pressure Mean [Right Arm] 109 Blood Pressure Source [Right Arm] Automatic Cuff Blood Pressure Position [Right Arm] Sitting 02 Sat by Pulse Oximetry 96 Oxygen Delivery Method Room Air Room Air Lab Data Lab results reviewed: Yes I reviewed the patient's lab results. Lab Results 07/07/23 17:30: WBC 12.9 H, RBC 5.04, Hgb 15.1, Hct 45.9, MCV 91.2, MCH 29.9, MCHC 32.8, RDW 13.8, Plt Count 299, MPV 8.8, Neut % (Auto) 57.5, Lymph % (Auto) 35.5, Terry % (Auto) 3.3, Eos % (Auto) 1.9, Baso % (Auto) 1.7, Neut # (Auto) 7.4, Lymph # (Auto) 4.6 H, Terry # (Auto) 0.4, Eos # (Auto) 0.2, Baso # (Auto) 0.2, ESR 7, Sodium 138, Potassium 3.8, Chloride 107, Carbon Dioxide 28, Anion Gap 6.8, BUN 14, Creatinine 0.80, Estimated Creat Clear 82, Estimated GFR 72, Est GFR ( Amer) 87, Glucose 90, Calcium 9.2, Total Bilirubin 1.0, AST 33, ALT 23, Alkaline Phosphatase 96, C-Reactive Protein 3.2, Total Protein 6.8, Albumin 4.2, Globulin 2.6, Albumin/Globulin Ratio 1.6 07/07/23 17:30 07/07/23 17:30 Orders (Tests/Meds): ED MEDICATIONS Discontinued Medications Generic Name Dose Route Start Last Admin Trade Name Freq PRN Reason Stop Dose Admin Acetaminophen 1,000 mg 07/07/23 17:10 07/07/23 17:31 Acetaminophen 1,000mg/100ml Vial IV 07/07/23 17:11 1,000 mg ONCE ONE Administration Dexamethasone Sodium Phosphate 10 mg 07/07/23 17:10 07/07/23 17:32 Dexamethasone 4mg/Ml 1ml Vial IM 07/07/23 17:11 10 mg ONCE ONE Administration Ketorolac Tromethamine 15 mg 07/07/23 17:10 07/07/23 17:31 Ketorolac 30mg/Ml Vial IV 07/07/23 17:11 15 mg ONCE ONE Administration ORDERS Category Date Time Status Knee XR right 3 views [XR knee RT 3V] Stat Exams 07/07/23 17:10 Completed CBC w/Auto Diff [Complete Blood Count Auto Diff] Stat Lab 07/07/23 17:30 Completed CMP [Comprehensive Metabolic Panel] Stat Lab 07/07/23 17:30 Completed CRP [C-Reactive Protein] Stat Lab 07/07/23 17:30 Completed ESR [Erythrocyte Sedimentation Rate] Stat Lab 07/07/23 17:30 Completed Medical Decision Narrative: In summary patient is a 63-year-old female who presents to the emergency department for evaluation of sciatica exacerbation and right knee pain. Patient is hemodynamically stable and afebrile on arrival. Physical exam is remarkable for painful weightbearing of the right knee laterally but not actually in the joint. Patient has passive full range of motion without pain. Patient has no palpable cords. Patient is tender to palpation over the right SI joint. Differential diagnosis includes sciatica exacerbation, septic arthritis, DVT, joint effusion, osteoarthritis etc. Initial workup will be conducted with hematologic labs plain film x-rays. Initial interventions include Toradol Tylenol. Initial workup reviewed by me and her hematologic labs are nonactionable, her plain film knee x-ray informally interpreted by me shows no acute processes, workup for PE was considered however patient clinically is minimal suspicion and physical exam is nonsuspicious or consistent with at all of DVT. Upon repeat evaluation patient reports significant improvement in her discomfort. Therefore patient will be appropriate for discharge home with prescriptions for Toradol and short course of prednisone along with a referral for physical therapy. Critical Care Critical Care Time Critical Care Time: No
--- NOTE | 2023-07-07 17:10 | XR_ITS ---
PROCEDURE INFORMATION: Exam: XR Right Knee Exam date and time: 07/07/2023 5:27 PM Age: 63 years old Clinical indication: Pain; Knee; Right; Additional info: Right knee pain TECHNIQUE: Imaging protocol: Radiologic exam of the right knee. Views: 3 views. COMPARISON: No relevant prior studies available. FINDINGS: Bones/joints: Tricompartmental joint space narrowing and osteophyte formation. No acute fracture or dislocation. Soft tissues: Normal. IMPRESSION: No acute findings.
[2023-07-07] MEDS: ACETAMINOPHEN 1,000MG/100ML VIAL 1000 MG IV (17:31)
[2023-07-07] MEDS: KETOROLAC 30MG/ML VIAL 15 MG IV (17:31)
[2023-07-07] MEDS: DEXAMETHASONE 4MG/ML 1ML VIAL 10 MG IM (17:32)
--- NOTE | 2023-07-07 17:53 | PC.NURSE ---
rounded on pt, no needs at this time
[2023-07-07 17:56] LABS: Chloride 107 mmol/L (98-107); Sodium 138 mmol/L (136-145)
[2023-07-07 17:57] LABS: Potassium 3.8 mmoL/L (3.5-5.1)
[2023-07-07 17:58] LABS: Basophils # 0.2 K/mm3 (0-0.2); Basophils % 1.7 % (0.1-2.0); Eosinophils # 0.2 K/mm3 (0.0-0.4); Eosinophils % 1.9 % (0.1-12.0); Hematocrit 45.9 % (37.0-47.0); Hemoglobin 15.1 g/dL (12.2-16.2); Lymphocytes # 4.6 K/mm3 (0.7-4.5); Lymphocytes % 35.5 % (10-50); Mean Corpuscular HGB Conc 32.8 g/dL (31.8-35.4); Mean Corpuscular Hemoglobin 29.9 pg (27.0-31.2); Mean Corpuscular Volume 91.2 fl (81-99); Mean Platelet Volume 8.8 fl (7.4-10.4); Monocytes # 0.4 K/mm3 (0.1-1.0); Monocytes % 3.3 % (1.7-9.3); Neutrophils # 7.4 K/mm3 (1.8-7.8); Neutrophils % 57.5 % (37.0-80.0); Platelet Count 299 K/mm3 (142-424); Red Blood Count 5.04 M/mm3 (4.20-5.40); Red Cell Distribution Width 13.8 % (11.5-17.5); White Blood Count 12.9 K/mm3 (4.8-10.8)
[2023-07-07 17:59] LABS: Alanine Aminotransferase 23 U/L (12-78); Albumin Level 4.2 g/dl (3.5-5.0); Albumin/Globulin Ratio 1.6 (1.1-1.8); Alkaline Phosphatase 96 U/L (38-126); Anion Gap 6.8 mEq/L (5-15); Aspartate Amino Transferase 33 U/L (14-36); Blood Urea Nitrogen 14 mg/dl (7-17); Carbon Dioxide 28 mmol/L (22.0-30.0); Creatinine Clearance Estimated 82 mL/min (50-200); Estimated Glomerular Filt Rate 72 ml/min (>60); GFR (African American) 87 ML/MIN (>60); Globulin 2.6 g/dL (1.3-3.2); Total Protein,Serum 6.8 g/dl (6.3-8.2)
[2023-07-07 18:00] LABS: Calcium 9.2 mg/dl (8.4-10.2); Glucose 90 mg/dl (74-100)
[2023-07-07 18:05] LABS: C-Reactive Protein 3.2 mg/L (0-4)
[2023-07-07 18:24] LABS: Erythrocyte Sedimentation Rate 7 mm/hr (0-30)
[2023-07-07 19:11] VITALS: BP 160/70; PULSE 70; RESP 19; TEMP 36.8; O2SAT 96
== END 2023-07-07 19:12 | disposition home or self-care (01) ==
PROVIDERS: Physician Assistant; Emergency Provider Emergency Medicine; PCP Psychiatry & Neurology Sleep Medicine
DX: M54.41 Lumbago with sciatica, right side (principal); M25.561 Pain in right knee; Z87.891 Personal history of nicotine dependence
CPT/HCPCS: 73562; 80053; 85025; 85651; 86140; 96372; 96374; 96375; 99284; J0131

== ENCOUNTER 2023-07-29 15:20 | Outpatient (CLI) | payer MEDICARE, SELFPAY ==
--- NOTE | 2023-07-29 15:29 | XR_ITS ---
FINAL REPORT CLINICAL HISTORY: mid/lower back pain FINDINGS: THORACIC SPINE 2 views were obtained. There is no acute fracture. Vertebrae are normal height. There is no malalignment. The disc spaces are preserved. There is mild, anterior osteophyte formation in the mid thoracic spine. There is no soft tissue abnormality. IMPRESSION: No acute bony abnormality. LUMBAR SPINE 5 views were obtained. There is no acute fracture. There is no malalignment. Vertebrae are normal height. The disc spaces are preserved. There is mild anterior osteophyte formation at L1-2, L2-3, and L3-4. There is no soft tissue abnormality. IMPRESSION: No acute bony abnormality. Reviewed, Interpreted and Dictated by Sj Hallman MD Transcribed by Catherine Canchola Authenticated and [facility]
--- NOTE | 2023-07-29 15:29 | XR_ITS ---
PROCEDURE INFORMATION: Exam: XR Sacrum and Coccyx, 2 or More Views Exam date and time: 07/29/2023 3:33 PM Age: 63 years old Clinical indication: Pain; Lumbago; Additional info: Low back pain TECHNIQUE: Imaging protocol: XR of the sacrum and coccyx, 2 or more views. COMPARISON: CR XR HIP LT 2-3V W/PELVIS 07/29/2023 3:33 PM FINDINGS: Bones/joints: Normal. No acute fracture. Soft tissues: Normal. 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 IMPRESSION: 1. No acute bony abnormality. 2. Mild aneurysm of the mid aorta. Consider further assessment with ultrasound of the aorta.
--- NOTE | 2023-07-29 15:29 | XR_ITS ---
PROCEDURE INFORMATION: Exam: XR Right Hip Exam date and time: 07/29/2023 3:33 PM Age: 63 years old Clinical indication: Hip pain; Right hip; Additional info: Piriformis syndrome TECHNIQUE: Imaging protocol: Radiologic exam of the right hip. Views: 2 or 3 views hip with pelvis when performed. COMPARISON: CT ABDOMEN PELVIS W CON 12/04/2020 2:38 PM FINDINGS: Bones/joints: Mild degenerative spurring of both hips and SI joints. No significant joint space narrowing. No acute fracture identified. Soft tissues: Unremarkable. IMPRESSION: Mild degenerative changes.
--- NOTE | 2023-07-29 15:29 | XR_ITS ---
PROCEDURE INFORMATION: Exam: XR Left Hip Exam date and time: 07/29/2023 3:33 PM Age: 63 years old Clinical indication: Hip pain; Left hip; Additional info: Piriformis syndrome TECHNIQUE: Imaging protocol: Radiologic exam of the left hip. Views: 2 or 3 views hip with pelvis when performed. COMPARISON: CT ABDOMEN PELVIS W CON 12/04/2020 2:38 PM FINDINGS: Bones/joints: Unremarkable. No acute fracture. Soft tissues: Unremarkable. IMPRESSION: No acute findings.
== END 2023-07-29 23:59 | disposition home or self-care (01) ==
LOC: RAD 15:21
PROVIDERS: PCP Physician Assistant; Visit Provider Physician Assistant
DX: M54.59 Other low back pain (principal); M54.9 Dorsalgia, unspecified; G57.01 Lesion of sciatic nerve, right lower limb; G57.02 Lesion of sciatic nerve, left lower limb; M25.552 Pain in left hip; M25.551 Pain in right hip
CPT/HCPCS: 72084; 72220; 73502

== ENCOUNTER 2023-08-12 13:00 | Outpatient (RCR) | payer MEDICARE, SELFPAY ==
--- NOTE | 2023-07-15 15:24 | HMH.PTOPEV ---
PT Outpatient Evaluation Rehab PT Outpatient Evaluation Start: 07/15/23 09:50 Freq: Status: Active Protocol: Document 07/15/23 09:57 MONROE (Rec: 07/15/23 12:57 MONROE [email or web address]) E-signed By Bailee Rousseau, PT Outpatient Therapy Subjective History Subjective History This is an initial evaluation for 63 y/o female, Judie Buchanan, who presents with referral for piriformis syndrome and right knee pain. Pt reports her LB pain began about 10 years ago and has progressively worsened since. Pt reports she did not seek treatment for her back pain d/ t low severity. However, pt has recently experienced two bouts of severe worsening in pain leading to ER visit and inability to ambulate well. Pt denies having imaging of her lumbar spine. Pt reports when the pain is severe it goes down to her ankle. Pt denies numbness or tingling. Pt quit smoking in January but reports her pain is worse since quick weight gain. Recent knee x-ray: Tricompartmental joint space narrowing and osteophyte formation. PMH: Fibromyalgia, COPD, R knee meniscus repair. Denies other significant medical history. New diagnosis of cancer in past 12 No months? Chief Complaint Pain Symptom Type Ache,Dull,Shooting Symptoms Relieved By OTC Meds,Prescription Meds Symptoms Aggravated By Standing,Walking Current Functional Limitations Lifting,Housework,Standing, Walking Symptom Description Intermittent,Pain at Rest Level of pain today (0-10) 3 Pain scale - at its best (0-10) 0 Pain scale - at its worst (0-10) 10 Lumbopelvic Eval Palapation tenderness right thoracic spinal tenderness No lumbar spinal tenderness Yes: 1/4 paraspinal tenderness Yes: 2/4 buttock tenderness Yes: 2/4 Lumbar/Sacral Palpation Findings Tenderness Range of Motion Lumbar Spine Active Flexion Range of WNL, decreased pain Motion (degrees) Lumbar Spine Active Extension Range of WNL, decreased pain Motion (degrees) Left Lumbar Spine Lateral Flexion Active WNL/ full AROM Range of Motion (degrees) Right Lumbar Spine Lateral Flexion WNL/ full AROM Active Range of Motion (degrees) Manual Muscle Test Left Knee Extension Strength Grade 5 Normal Knee Flexion Strength Grade 5 Normal Hip Flexion Strength Grade 5 Normal Hip Abduction Strength Grade 5 Normal Hip Adduction Strength Grade 5 Normal Right Knee Extension Strength Grade 4 Good Knee Flexion Strength Grade 4 Good Hip Flexion Strength Grade 4- Good- Hip Abduction Strength Grade 4 Good Hip Adduction Strength Grade 5 Normal Special Tests Hip Scouring (Quadrant) Test Negative Right Hip Isaiah (CHEPE) Test Negative Right Hip Nain Test Positive Right Hip Piriformis Test Positive Right Sciatic Nerve Tension Test Negative Right Reverse Sciatic Nerve Tension Test Negative Right Crossed Straight Leg Raise Test Negative Left,Negative Right Lumbar [place] Distraction Test/Manual Positive Traction Oswestry Index Section 1 Pain Intensity The pain is severe and does not vary much Section 2 Personal Care (Washing,Dresing) my way of washing or dressing even though it causes some pain Section 3 Lifting I can lift heavy weights, but it gives me extra pain Section 4 Walking I cannot walk more than one mile wihtout increasing pain Section 5 Sitting I can sit in my favorite chair for as long as I like Section 6 Standing I cannot stand more than 10 minutes without increasing pain Section 7 Sleeping I get no pain in bed Section 8 Social Life My social life is normal and gives me no extra pain Section 9 Traveling I get no pain when traveling Section 10 Changing Degreee of Pain My pain is gradually getting worse Score and Risk Level Oswestry Sc 18 Oswestry Risk Level Moderate Disability Outpatient Therapy Assessment Impairments Problems/Impairmments Palpation Tenderness,Impaired Range of Motion,Impaired Strength,Impaired Standing, Impaired Lifting,Impaired Household Care,Impaired Recreational Activities, Impaired Work Activities, Subjective C/O Pain,Impaired Self Care/Self Management Prognosis Rehab Potential Good Comment Pt with multiple TTP points in R paraspinals, piriformis, and IT band. Pt with WNL lumbar AROM. Pt demo'd symptom relief with forward bending, manual traction, CPA on lower lumbar spine, sacral mobs, and piriformis stretch. PT to treat LBP and refer to MD for possible imaging. Pt is motivated to decrease her pain through conservative measures and would benefit from skilled OP PT to address deficits and decrease pain. Clinical Impression Consistent with Diagnosis Yes Short Term Goals Number of Weeks 3 Increase Strength Yes: R Hip flexion to 4+/5 Decrease Subjective C/O Pain Yes: at worst 7/10 to decrease severity of symptoms. Improve Self Care/Self Management Yes Patient to be Ind w/ HEP Yes Nursing Home Goals Number of Weeks 6 Decreased Palpation Tenderness Yes: 1/4 TTP affected areas Increase Strength Yes: 5/5 R LE Improve Ability For Household Care Yes: Verbalize improved ability to perform household care with minimal pain. Improve Oswestry Score Yes: Improve to score reflecting mild disability to improve QOL Decrease Subjective C/O Pain Yes: At worst 4/10 to improve symptom severity Improve Self Care/Self Management Yes Patient to be Ind w/ Advanced HEP Yes Outpatient Therapy Plan of Care Treatment Plan May Include Therapeutic Exercise Including Home Yes Exercise Program Manual Therapy Techniques Yes Neuromuscular Re-education Yes Therapeutic Activities to Return to Yes Previous Functional/Work Level ADL/Self Care Education Yes Mechanical Traction Yes Dry Needling Yes Thermal Modalities Yes Electrical Stimulation Yes Ultrasound/Phonophoresis Yes Iontophoresis Yes Massage Yes Eval/Re-Eval Yes Frequency Times per week 1-2 times Duration Number of Weeks 4-6 Addendums This patient is a candidate for social No or vocational rehab? Patient/Guardian verbally acknowledges Yes understanding of treatment program and consents to further treatment? Patient/Guardian verbally acknowledges Yes understanding of diagnosis, prognosis and goals for treatment? Eval Complexity PT Charges 03258 - Moderate Complexity Shoulder/Elbow Eval Shoulder Objective Measurements Elbow Objective Measurements PHYSICIAN CERTIFICATION: I certify the specified therapy services for Judie Buchanan are required, authorized, and reviewed every 30 days.
== END 2023-08-12 14:10 | disposition home or self-care (01) ==
LOC: PT 13:00
PROVIDERS: Visit Provider Physician Assistant
DX: M25.561 Pain in right knee (principal)
CPT/HCPCS: 97110; 97140; 97163

== ENCOUNTER 2023-11-30 13:49 | Emergency (ER) | payer MEDICARE, SELFPAY ==
[2023-11-30 15:10] VITALS: BP 158/89; PULSE 98; RESP 17; TEMP 37.5; O2SAT 96; BMI 37.0
--- NOTE | 2023-11-30 15:22 | EXP.UTC ---
Discharge Plan Disposition Patient Disposition: Home, Self-Care Condition: Good Prescriptions Prescriptions: New benzonatate 100 mg capsule 100 mg PO TID PRN (Reason: cough) Qty: 30 0RF guaifenesin [Mucinex] 600 mg tablet extended release 12hr 1,200 mg PO BID PRN (Reason: cough) Qty: 20 0RF azithromycin [Zithromax Z-Lenny] 250 mg tablet See Rx Instructions .ROUTE .COMPLEX 5 Days Qty: 6 0RF Rx Instructions: For 250 mg dose pack: take 500 mg today (day 1), then 250 mg for 4 days (days 2-5) prednisone 20 mg tablet 20 mg PO BID 5 Days Qty: 10 0RF No Action aripiprazole 5 mg tablet 5 mg PO DAILY Qty: 30 lisinopril 2.5 mg tablet 2.5 mg PO DAILY Qty: 30 bisoprolol fumarate 5 mg tablet 5 mg PO DAILY Qty: 15 methocarbamol 500 mg tablet 500 mg PO HS PRN (Reason: muscle spasm) Qty: 30 0RF venlafaxine 150 mg capsule,extended release 24hr 150 mg PO DAILY prednisone [prednisone] 20 mg tablet 20 mg PO BID Qty: 10 0RF Rx Instructions: start tomorrow fluticasone propion-salmeterol [Advair Diskus] 100-50 mcg/dose blister with device 1 inh inhalation BID Qty: 60 0RF Combivent Respimat 20-100 mcg/actuation mist 1 puff inhalation QID Qty: 4 0RF Rx Instructions: space evenly during waking hours albuterol sulfate 2.5 mg /3 mL (0.083 %) solution for nebulization 2.5 mg inhalation QID PRN (Reason: shortness of breath or wheezing) Qty: 90 0RF (DME) nebulizer and compressor Device See Rx Instructions .Route Qty: 1 0RF Rx Instructions: As directed Paxlovid 300 mg (150 mg x 2)-100 mg tablets,dose pack See Rx Instructions PO .COMPLEX Qty: 30 0RF Rx Instructions: take TWO 150 mg tablets of nirmatrelvir with ONE 100 mg tablet of ritonavir twice daily for 5 days ketorolac 10 mg tablet 10 mg PO Q8H PRN (Reason: pain) 3 Days Qty: 10 0RF prednisone 50 mg tablet 50 mg PO DAILY 5 Days Qty: 5 0RF hydroxyzine pamoate [Vistaril] 25 mg capsule 25 mg PO TID PRN (Reason: anxiety) Qty: 30 0RF prednisone 10 mg tablet 10 mg PO DIRECTED 9 Days Qty: 21 0RF Rx Instructions: Take 4 tablets daily for 3 days, then take 2 tablets daily for 3 days, then take 1 tablet daily for 3 days, then stop. benzonatate [benzonatate] 100 mg capsule 100 mg PO TIDP PRN (Reason: Cough) Qty: 30 0RF amoxicillin [amoxicillin] 875 mg tablet 875 mg PO Q12H Qty: 20 0RF ondansetron 4 mg Tablet,Disintegrating 4 mg PO Q8H PRN (Reason: Nausea) Qty: 12 0RF Paxlovid 300 mg (150 mg x 2)-100 mg tablets,dose pack See Rx Instructions .ROUTE .COMPLEX Qty: 30 0RF Rx Instructions: take TWO 150 mg tablets of nirmatrelvir with ONE 100 mg tablet of ritonavir twice daily for 5 days Referrals Follow up/Referrals: Keke Young MD [Primary Care Provider] - See instructions Activity Restrictions/Add. Instructions Additional Instructions/Restrictions: Start antibiotic today. Be sure to complete entire prescription even if feeling better Monitor temp. Tylenol every 4 hours as needed and / or ibuprofen every 6 hours as needed ( As long as your primary care physician has told you that it ok to take both. For fever/aches/pains ER if no less than 101 despite Tylenol or Motrin Humidifier/vaporizer or hot steamy shower Inhaler every 4-6 hours as needed like we discussed. If unsure how to use it, ask pharmacist to demonstrate how. Should help open airways and improve cough, wheezing, and shortness of breath Mucinex during the day for your cough and cough suppressant only at night. Be sure to drink lots of water. Insurance may not cover a prescriptions for mucinex. Might be cheaper to get 400mg tablets and take 2 tablet in the morning, mid-day and evening with lots of water. *Tessalon Perles will not cause drowsiness but use at bedtime to help stop cough so that you may get
[2023-11-30 15:57] VITALS: BP 158/89; PULSE 98; RESP 17; TEMP 37.5; O2SAT 96
[2023-11-30 15:58] LABS: UTC Strep Screen (Rapid) Negative (Negative)
[2023-11-30 18:07] LABS: Coronavirus 19, PCR Not Detected (NotDetected); Influenza A, PCR Not Detected (NotDetected); Influenza B, PCR Not Detected (NotDetected)
== END 2023-11-30 16:00 | disposition home or self-care (01) ==
PROVIDERS: Emergency Provider Nurse Practitioner; PCP Family Medicine
DX: J20.9 Acute bronchitis, unspecified (principal); J01.90 Acute sinusitis, unspecified; R50.9 Fever, unspecified; R07.0 Pain in throat
CPT/HCPCS: 87636; 87880; 96372; 99212; 99214; G0463; J0696; J2919; J7620

== ENCOUNTER 2024-01-25 08:13 | Day surgery (SDC) | payer MEDICARE, SELFPAY ==
--- NOTE | 2024-01-20 14:05 | SUR.PREOP ---
1400: Attempted to contact. VM left with call back information.
[2024-01-20 14:41] VITALS: BMI 35.1
[2024-01-25] MEDS: TETRACAINE 0.5% OPTH SOL 15ML OP ×3 (08:55→09:05)
[2024-01-25] MEDS: PHENYLEPHRINE 2.5% OPHTH SOLN 2ML OP ×3 (08:55→09:05)
[2024-01-25] MEDS: CYCLOPENTOLATE 2% OPHTH SOLN 2ML BOTTLE OP ×3 (08:55→09:05)
[2024-01-25 09:01] VITALS: BP 138/77; PULSE 58; RESP 18; TEMP 36.2; O2SAT 94
[2024-01-25 10:01] VITALS: BP 144/66; PULSE 53; RESP 18; O2SAT 94
[2024-01-25] MEDS: MIDAZOLAM 2MG/2ML VIAL 1 MG IV (10:01)
[2024-01-25 10:06] VITALS: BP 131/68; PULSE 53; RESP 18; O2SAT 94
[2024-01-25] MEDS: SODIUM CHLORIDE 0.9% 10ML FLUSH SYRINGE 10 ML IV (10:09)
[2024-01-25] MEDS: LIDOCAINE 1% PF 2ML AMPULE 2 ML IJ (10:10)
[2024-01-25] MEDS: TIMOLOL 0.5% OPTH SOLN 5ML OP (10:10)
[2024-01-25] MEDS: TOBRAMYCIN/DEX OPTH SUSP 2.5ML OP (10:10)
[2024-01-25 10:11] VITALS: BP 119/70; PULSE 60; RESP 18; O2SAT 95
[2024-01-25 10:16] VITALS: BP 106/54; PULSE 52; RESP 18; O2SAT 95
[2024-01-25 10:24] VITALS: BP 134/72; PULSE 61; RESP 18; TEMP 36.6; O2SAT 95
--- NOTE | 2024-01-25 11:42 | P.PCN_ITS ---
[facility] Procedure Note Date: 01/25/24 Time: 11:42 Procedure Note:: Preoperative Diagnosis: Cataract combined NS Cortical Complex [Left] Eye Postop diagnosis: same Operation: Microscopic phacoemulsification with intraocular lens implant [Left] Eye Specimen: None Blood Loss: None The patient was examined in the office with a complaint of poor vision in the [left] eye. The patient reports that this interferes with ADLs such as reading, watching TV and/or driving or the vision is like looking through a foggy haze and is very troubling. The patient was examined and found to have a visually significant cataract with best corrected vision of [20/400] by refraction and/or glare testing. Treatment options, risks and benefits were explained and the patient elected to have cataract surgery in an attempt to improve their vision. The patient had the eye anesthetized with topical tetracaine, the eye ways prepped and draped in the usual fashion for cataract surgery. A paracentesis and a temporal keratotomy were made. 0.2cc of 1% lidocaine PF was placed into the anterior chamber. And aqueous/viscoelastic exchange was done and a 360 degree capsulorexis was performed. Through hydrodissection and delineation with BSS on a cannula was done. The lens nucleus was phecoemulsified with CDE of [5.39]. Residual cortical material was removed using automated I&A The capsular bag was deepened with viscoelastica and a PCIOL was placed in the capsular bag with good centration and stability. Residual viscoelastic was removed using automated I&A. The keratotomy incision was hydrated with BSS on a cannula. The wound were checked and found to be water tight. IOP was checked digitally and adjusted as needed so as not to be too high. 1 drop of timolol 0.5%, ofloxacin, prednisolone acetate and ketorolac was instilled and eye shield taped over the eye. The patient was taken to recovery in good condition and will be seen postoperatively.
== END 2024-01-25 10:30 | disposition home or self-care (01) ==
PROVIDERS: PCP Family Medicine; Visit Provider Ophthalmology
PROC: (CPT 66984; principal; 2024-01-25 10:45)
DX: H25.812 Combined forms of age-related cataract, left eye (principal)
CPT/HCPCS: 66984; J2250; V2632

== ENCOUNTER 2024-02-15 06:46 | Day surgery (SDC) | payer MEDICARE, SELFPAY ==
[2024-02-11 11:56] VITALS: BMI 32.1
[2024-02-15] MEDS: PHENYLEPHRINE 2.5% OPHTH SOLN 2ML OP ×3 (06:57→06:59)
[2024-02-15] MEDS: CYCLOPENTOLATE 2% OPHTH SOLN 2ML BOTTLE OP ×3 (06:57→06:59)
[2024-02-15] MEDS: TETRACAINE 0.5% OPTH SOL 15ML OP ×3 (06:58→06:59)
[2024-02-15 07:02] VITALS: BP 142/73; PULSE 79; RESP 18; TEMP 36.5; O2SAT 92
[2024-02-15 08:52] VITALS: BP 138/72; PULSE 80; RESP 18; O2SAT 96
[2024-02-15] MEDS: MIDAZOLAM 2MG/2ML VIAL 1 MG IV (08:52)
[2024-02-15] MEDS: SODIUM CHLORIDE 0.9% 10ML FLUSH SYRINGE 10 ML IV ×2 (08:52→09:02)
[2024-02-15 08:57] VITALS: BP 141/72; PULSE 65; RESP 18; O2SAT 96
[2024-02-15] MEDS: LIDOCAINE 1% PF 2ML AMPULE 2 ML IJ (09:00)
[2024-02-15] MEDS: TIMOLOL 0.5% OPTH SOLN 5ML OP (09:00)
[2024-02-15] MEDS: TOBRAMYCIN/DEX OPTH SUSP 2.5ML OP (09:00)
[2024-02-15 09:02] VITALS: BP 145/82; PULSE 69; RESP 18; O2SAT 94
[2024-02-15] MEDS: MIDAZOLAM 2MG/2ML VIAL 2 MG (09:02)
[2024-02-15 09:07] VITALS: BP 150/79; PULSE 72; RESP 18; O2SAT 95
[2024-02-15 09:16] VITALS: BP 163/80; PULSE 61; RESP 16; TEMP 36.4; O2SAT 93
== END 2024-02-15 09:20 | disposition home or self-care (01) ==
PROVIDERS: PCP Family Medicine; Visit Provider Ophthalmology
PROC: (CPT 66982; principal; 2024-02-15 08:00)
DX: H26.20 Unspecified complicated cataract (principal)
CPT/HCPCS: 66982; J2250; V2632

== ENCOUNTER 2024-06-06 10:35 | Outpatient (CLI) | payer MEDICARE, SELFPAY ==
[2024-06-06 18:18] LABS: Coronavirus 19, PCR Not Detected (NotDetected); Influenza B, PCR Not Detected (NotDetected)
[2024-06-06 20:05] LABS: Influenza A, PCR Detected (NotDetected)
== END 2024-06-06 23:59 | disposition home or self-care (01) ==
LOC: LAB.DROPOF 06-07 10:36
PROVIDERS: PCP Student in an Organized Health Care Education/Training Program; Visit Provider Student in an Organized Health Care Education/Training Program
DX: J40 Bronchitis, not specified as acute or chronic (principal)
CPT/HCPCS: 87636

== ENCOUNTER 2024-07-27 09:19 | Outpatient (CLI) | payer MEDICARE, SELFPAY ==
--- OUTSIDE RECORDS SUMMARY | 2024-07-27 09:21 | XMS_ITS ---
Author Organization Unknown [facility] Start Date Provider Encounter for Check-up [phone] [facility]
--- NOTE | 2024-07-27 09:22 | MM_ITS ---
PROCEDURE INFORMATION: Exam: MG Bilateral Screening 3D Mammography Exam date and time: 07/27/2024 10:01 AM Age: 64 years old Clinical indication: Screening examination TECHNIQUE: Imaging protocol: Bilateral Screening tomosynthesis and 2D mammography including computer-aided detection (CAD) when performed. COMPARISON: 1. MG MM DIG SCREENING MAMM BI W/CAD 12/23/2020 1:04 PM 2. MG SCBI MM Dig screening mamm BI w/CAD 12/16/2017 9:31 AM FINDINGS: MAMMOGRAPHY: Breast composition: There are scattered areas of fibroglandular density. Mass: None. Architectural distortion: None. Calcifications: No suspicious calcifications. Asymmetric density: None. Skin thickening: None. Axillary adenopathy: None. IMPRESSION: No mammographic evidence of malignancy. Annual screening is recommended unless otherwise clinically indicated. ASSESSMENT: BI-RADS Category 1: Negative.
--- NOTE | 2024-07-27 09:22 | XR_ITS ---
FINAL REPORT TECHNIQUE: Bone densitometry calculations of the lumbar spine and left hip were obtained. CLINICAL HISTORY: POST MENOPAUSAL COMPARISON: None FINDINGS: Using L1-4, the bone mineral density of the spine is 1.009 g/cm2, corresponding to T-score of -0.3 and a Z score of 1.5. This is within the range of normal. Using the left hip, the bone mineral density of the femoral neck is 0.686 g/cm2, corresponding to a T-score of -1.5 and a Z-score of 0.1. This is within the range of osteopenia. Using the right hip, the bone mineral density of the femoral neck is 0.724 g/cm?, corresponding to a T-score of -1.8, and a Z-score of -0.5. This is within the range of osteopenia. NOTE: T-score: Standard deviation compared with peak bone mass of young adult mean. *Following the recommendations of the International Society of Bone densitometry, classification of hip BMD is based on the lower of two T-scores; total hip or femoral neck. IMPRESSION: 1. Bone mineral density of the lumbar spine within the range of normal. 2. Bone mineral density of the bilateral femoral necks within the range of osteopenia. Reviewed, Interpreted and Dictated by Jazmín Butler MD Transcribed by Stephanie Srivastava Authenticated and [facility]
--- NOTE | 2024-07-27 09:23 | CT_ITS ---
FINAL REPORT TECHNIQUE: Thin section axial images were obtained from the thoracic inlet through the upper abdomen after intravenous contrast injection. Reconstruction images were obtained from the axial data. Exam was performed using dose reduction technique. CLINICAL HISTORY: ABNORMAL CT CHEST COMPARISON: None available FINDINGS: There is a 17 mm hypodense left thyroid nodule. There is no axillary lymphadenopathy. There is a 15 mm pretracheal lymph node favored to be reactive. No other mediastinal lymphadenopathy. No hilar lymphadenopathy. There is no pleural or pericardial effusion. There is a 4 mm right upper lobe nodule on series 2, image 10. No other concerning nodules identified. There are no consolidations. Limited evaluation of the upper abdomen is without acute abnormality. No acute osseous abnormality. IMPRESSION: 4 mm right apical nodule. Recommend follow-up after risk stratification per Fleischner criteria. Reviewed, Interpreted and Dictated by Jazmín Butler MD Transcribed by Angela Tucker Authenticated and [facility]
[2024-07-27 10:01] LABS: Blood Urea Nitrogen 14 mg/dl (7-17); Estimated Glomerular Filt Rate 72 ml/min (>60); GFR (African American) 87 ML/MIN (>60)
[2024-07-27] MEDS: IOPAMIDOL-370 (76%);100ML BOTTLE 75 ML IV (10:21)
[2024-07-27] MEDS: SODIUM CHLORIDE 0.9% 10ML SYR (RAD ONLY) 10 ML IV (10:21)
== END 2024-07-27 23:59 | disposition home or self-care (01) ==
LOC: RAD 09:19
PROVIDERS: PCP Family Medicine; Visit Provider Physician Assistant
DX: Z78.0 Asymptomatic menopausal state (principal); Z12.31 Encounter for screening mammogram for malignant neoplasm of breast; R93.89 Abnormal findings on diagnostic imaging of other specified body structures
CPT/HCPCS: 71260; 77063; 77067; 77080; 82565; 84520; Q9967

== ENCOUNTER 2024-08-07 12:43 | Outpatient (CLI) | payer MEDICARE, SELFPAY ==
--- NOTE | 2024-08-07 12:52 | US_ITS ---
FINAL REPORT TECHNIQUE: Sonographic images of the thyroid gland were obtained in the longitudinal and transverse planes. CLINICAL HISTORY: TYHROID NODULE FINDINGS: The right lobe measures 2.2 x 4.5 x 2.2 cm. The right lobe is heterogeneous. There are tiny colloid cysts. No convincing nodule is identified. The left lobe measures 2.4 x 5.0 x 2.2 cm. There is a 22 mm colloid cyst. There is a 12 mm hypoechoic nodule. The isthmus measures 4 mm. There is a mixed cystic and solid nodule in the right isthmus measuring 17 mm. IMPRESSION: TR 3 nodule in the isthmus. Recommend follow-up. TR 4 left thyroid nodule. Recommend follow-up. Follow-up exam in 6 to 12 months. Reviewed, Interpreted and Dictated by Jazmín Butler MD Transcribed by Judie Gaines Authenticated and [facility]
== END 2024-08-07 23:59 | disposition home or self-care (01) ==
LOC: RAD 12:44
PROVIDERS: PCP Family Medicine; Visit Provider Physician Assistant
DX: E04.1 Nontoxic single thyroid nodule (principal)
CPT/HCPCS: 76536

== ENCOUNTER 2024-11-20 09:46 | Outpatient (CLI) | payer MEDICARE, SELFPAY ==
--- OUTSIDE RECORDS SUMMARY | 2024-06-28 05:30 | XMS_ITS ---
Author Organization [facility] Address [address] [place] [id number] Care Team Providers Care Compliance Engineer Name Role Phone Sandra Young Primary Care Provider Greer Frances Unavailable [phone] Allergies No Known Allergies Results Component Value Reference Range Notes CBC Fingerstick (in house) Reviewed date:06/28/2024 11:02:30 PM Interpretation: Performing Lab: Notes/Report: wbc 14.3 3.5 - 10 lym 29.6% 15 - 50 mid 5.7% 2 - 15 gran 64.7% 35 - 80 rbc 5.22 3.5 - 5.5 hgb 15.0 11.5 - 16.5 hct 45.2 35 - 55 mcv 86.7 75 - 100 mch 28.9 25 - 35 mchc 33.3 31 - 38 plat 227 100 - 400 CT Scan : Chest with IV cont rast Reviewed date:08/03/2024 08:33:50 AM Interpretation:4mm nodule, recommend nodule Performing Lab: Notes/Report: 4mm nodule, recommend nodule REASON FOR VISIT checkup Medications Medication SIG (Take, Route, Frequency, Duration) Notes Start Date End Date Status ARIPiprazole 5 MG 1 tablet Orally Once a day 06/01/2024 Active Myrbetriq 25 MG 1 tablet Orally Once a day; Duration: 30 day(s) 04/26/2024 Active Albuterol Sulfate HFA 108 (9 0 Base) MCG/ACT 1-2 puff Inhalation every 4-6 hrs Active Cyclobenzaprine HCl 10 MG 1 tablet Orall y three times qd prn; Duration: 30 day(s) 12/28/2022 Active Nebulizer System All-In-One - as directed 06/29/19 25 Active Meloxicam 15 MG 1 tablet Orally Once a day; Duration: 90 days Active Advair Diskus 100-50 MCG/ACT 1 puff Inha lation Twice a day Active Albuterol Sulfate (2.5 MG/3ML) 0.083% 3 ml Inhalation every 6 hrs, prn 06/28/2024 Active Bisoprolol Fumarate 5 MG 1/2 tab orally once a day; Duration: 90 days Active Venlafaxine HCl ER 75 MG 1 tab(s) orally once daily; Duration: 90 days Active Doxycycline Monohydrate 100 MG 1 capsule Orally every 12 hrs; Duration: 10 day(s) 06/28/2024 Active Lisinopril 10 MG 1 tablet Orally Once a day; Duration: 90 days Active Vital Signs Blood pressure systolic 120 mm Hg 06/29/19 Blood pressure diastolic 80 mm Hg 025 Heart Rate 63 /min 06/28/2024 Height 62 in 06/28/2024 Weight 148.0 lbs 06/28/2024 BMI 27.07 kg/m2 06/28/2024 Encounters Encounter Location Date Provider Diagnosis [facility] [address] [facility] [address] [id number] 06/28/2024 Frances Greer Abnormal chest CT R9 3.89 ; Bronchitis J40 ; Influenza A J10.1 and COPD exacerbation J44.1 Assessments Encounter Date Diagnosis (ICD Code) Assessment Notes Treatment Notes Treatment Clinical Notes Section Notes 06/28/[address] (ICD-10 - R93.89) 06/28/2024 Bronchitis (ICD-10 - J40) 06/28/2024 Influenza A (ICD-10 - J10.1) Resolved. 06/28/2024 COPD exacerbation (ICD-10 - J44.1) Plan Of Treatment Medication Medication Name Sig Start Date Stop Date Notes Nebulizer System All-In-One - as directed 06/28/2024 Albuterol Sulfate (2.5 MG/3M L) 0.083% 3 ml Inhalation every 6 hrs, prn 06/28/2024 Doxycycline Monohydrate 100 MG 1 capsule Orally every 12 hrs; Duration: 10 day(s) 06/28/2024 Treatment Notes Assessment Notes Influenza A Resolved. Next Appt Details Follow Up: 1 Week, Reason: Progress Notes * Bob BUCHANANOB: 8 (64 yo F)Acc No.[id number]:06/28/2024 Progress Notes Patient: Judie MANE Provider: MAYCO Gross :1960 A ge:64 Y S ex:Female Date:06/28/2024 Address:[address] [place], [place] [address], [id number] Pcp:Sandra Young Subjective: * Chief Complaints: * 1 . Checkup. * HPI: C ardiology: The pt is here for a check up. Pt states she is fasting except for some diet Mt Dew and strawberry flavored water. Pt states she had Influenza A and still feeling fatigued. Pt states she is needing the CT scan re ordered. Pt states the bone density order and Mammogram do not need to be reordered. 64 year old female presents with c/o Short of Breath. c/o Fatigue. Denies : Chest Pain. D enies : Dizziness. D enies : Palpitations. * ROS: D ERMATOLOGY: no R melanie. n o H carolyn. G ASTROENTEROLOGY: no N ausea. n o V omiting. n o D iarrhea.? U ROLOGY: no D ifficulty urinating. n o B lood in urine. * Medical History: F ibromyalgia, Hypertension, Osteoarthritis, [...] Sexually active: yes. * Medications: T aking Venlafaxine HCl ER 75 MG Capsule Extended Release 24 Hour 1 tab(s) orally once daily , Taking Lisinopril 10 MG Tablet 1 tablet Orally Once a day , Taking Bisoprolol Fumarate 5 MG Tablet 1/2 tab orally once a day , Taking Meloxicam 15 MG Tablet 1 tablet Orally Once a day , Taking Advair Diskus 100-50 MCG/ACT Aerosol Powder Breath Activated 1 puff Inhalation Twice a day , Taking Albuterol Sulfate HFA 108 (90 Base) MCG/ACT Aerosol Solution 1-2 puff Inhalation every 4-6 hrs , Taking Cyclobenzaprine HCl 10 MG Tablet 1 tablet Orally three times qd prn , Taking ARIPiprazole 5 MG Tablet 1 tablet Orally Once a day , Taking Myrbetriq 25 MG Tablet Extended Release 24 Hour 1 tablet Orally Once a day , Discontinued Cefdinir 300 MG Capsule 1 cap(s) Orally Two times a day , Medication List reviewed and reconciled with the patient * Allergies: N .K.D.A. Objective: * Vitals: W t:148.0, Temp:97.8, BP:120/80, HR:63, O2 Sat:97% on RA, Nurse:JOHN, Ht: 62, BMI:27.07. * Examination: G eneral Examination: General Appearance: N AD. H EENT: sclera and conjunctiva clear, PERRLA, TM's normal, translucent, nose congested. O ral cavity: n o lesions, mucosa moist and WNL, no erythema. N oscar: s upple, no lymphadenopathy. C hest: n ormal shape and expansion. H eart: R SR. L ungs: bilateral wheezes, no rales. A bdomen: bowel sounds present, soft and nontender, no organomegaly or masses, no guarding or rigidity. N eurologic Exam: I ntact, gait normal. S kin: n ormal, no rash. P eripheral pulses: n ormal (2+) bilaterally. E xtremities: n o leg edema. ? Assessment: * Assessment: 1. A bnormal chest CT - R93.89 (Primary) 2 . B ronchitis - J40 ?3. I nfluenza A - J10.1 4 . C OPD exacerbation - J44.1 Plan: * Treatment: 2.?Bronchitis? Start Doxycycline Monohydrate Capsule, 100 MG, 1 capsule, Orally, every 12 hrs, 10 day(s), 20 Capsule, Refills 0;?Start Albuterol Sulfate Nebulization Solution, (2.5 MG/3ML) 0.083%, 3 ml, Inhalation, every 6 hrs, prn, 60, Refills 2;?Start Nebulizer System All-In-One Miscellaneous, -, as directed, 1, Refills 0.?LAB: CBC Fingerstick (in house) (Collection Date & Time - 06/28/2024)* Value Reference Range w bc 14.3 3.5 - 10 * l ym 29.6% 15 - 50 * m id 5.7% 2 - 15 * g ran 64.7% 35 - 80 * r bc 5.22 3.5 - 5.5 * h gb 15.0 11.5 - 16.5 * h ct 45.2 35 - 55 * m cv 86.7 75 - 100 * m ch 28.9 25 - 35 * m chc 33.3 31 - 38 * p lat 227 100 - 400 * Teresa Costello 06/28/2024 12:10: 03 PM > Provider reviewed results while patient in office. 3.?Influenza A? Notes: Resolved.?? * Procedure Codes: G 2211 Complex e/[place], [address] [place], [address] CAPILLARY BLOOD DRAW, 45273 CBC WITH AUTO DIFF, 3074F SYST BP LT 130 MM HG, 3079F DIAST BP 80-89 MM HG * Follow Up: 1 Week * Images: Billing Information: * Visit Code: 67224 Office Visit, Est Pt., Level 4. * Procedure Codes: G2211 Complex e/[place] [address] [place] [address] CAPILLARY BLOOD DRAW. 47884 CBC WITH AUTO DIFF. 3074F SYST BP LT 130 MM HG. 3079F DIAST BP 80-89 MM HG. * Electronic signature of MAYCO Dan on 11/20/2024 at 09:49 AM EDT Sign off status: Pending * Provider: MAYCO Gross Date: 0 06/28/2024 Generated for Katey cochran/James/eTransmitting on: 0 11/20/2024 09:49 AM EDT History and Physical Notes * HPI (History of Present Illness) Category Sub-Category Detail Notes Category Not es Cardiology Short of Breath Chest Pain Palpitations Dizziness Fatigue Examination Category Sub-Category Detail Notes Category Not es General Examination HEENT: sclera and c onjunctiva clear, PERRLA, TM's normal, translucent, nose congested Heart: RSR Lungs: bilateral wheezes, n o rales Abdomen: bowel sounds present , soft and nontender, no organomegaly or masses, no guarding or rigidity Extremities: no leg edema General Appearance: NAD Skin: normal, no rash Neurologic Exam: Intact, gait normal Neck: supple, no lymphaden opathy Oral cavity: no lesions, mucosa m oist and WNL, no erythema Peripheral pulses: normal (2+) bilatera lly Chest: normal shape and exp ansion
--- OUTSIDE RECORDS SUMMARY | 2024-07-05 05:30 | XMS_ITS ---
Author Organization [facility] Address [address] [place] [id number] Care Team Providers Care Client Development Director Name Role Phone Sandra Young Primary Care Provider Greer Frances Unavailable [phone] Allergies No Known Allergies Results Component Value [...] daily; Duration: 90 days Active Vital Signs Blood pressure systolic 128 mm Hg 07/06/19 25 Blood pressure diastolic 70 mm Hg 025 Heart Rate 53 /min 07/05/2024 Height 62 in 07/05/2024 Weight 150.4 lbs 07/05/2024 BMI 27.51 kg/m2 07/05/2024 Encounters Encounter Location Date Provider Diagnosis [facility] [address] [facility] [address] [place], [place] [phone] 07/05/2024 Frances Butterfield Bronchitis J40 Assessments Encounter [...] * Bob BUCHANANOB: 8 (64 yo F)Acc No.[id number]:07/05/2024 Progress Notes Patient: Judie MANE Provider: MAYCO Gross :1960 A ge:64 Y S ex:Female Date:07/05/2024 Address:[address] [place], [place] [phone] Pcp:Sandra Young Subjective: * Chief Complaints: * [...] Assessment: * Assessment: 1. Lilia lechuga - [facility] (Primary) Plan: * Treatment: Value Reference Range [...] G 2211 Complex e/[place], [address] [place], [address] CAPILLARY BLOOD DRAW, 37094 CBC WITH AUTO DIFF, 3074F SYST BP LT 130 MM HG, 3078F DIAST BP < 80 MM HG * Follow Up: 2 Weeks * Images: Billing Information: * Visit Code: 56916 Office Visit, Est Pt., Level 3. * Procedure Codes: G2211 Complex e/[place]. [address] [place]. [address] CAPILLARY BLOOD DRAW. 24315 CBC WITH AUTO DIFF. 3074F SYST BP LT 130 MM HG. 3078F DIAST BP < 80 MM HG. * Electronic signature of MAYCO Dan on 11/20/2024 at 09:48 AM EDT Sign off status: Pending * Provider: MAYCO Gross Date: 0 07/05/2024 Generated for Katey cochran/James/eTransmitting on: 0 11/20/2024 09:48 AM EDT History and Physical Notes * [...]
--- OUTSIDE RECORDS SUMMARY | 2024-08-02 05:00 | XMS_ITS ---
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 Referred Provider Specialty Pulmonary [facility] General Notes Frances Butterfield 08/02 1:34:34 PM > Needs an appt at [facility], Parul Aldana 08/02/2024 01:36:11 PM > faxed with documentation to [facility] Pulmonology; 09/07 at 10:40am Referral Priority Routine REASON FOR VISIT F/U go over test results Medications Medication SIG (Take, Route, Frequency, Duration) Notes Start Date End Date Status Nebulizer System All-In-One - as directed 06/29/19 25 Active Myrbetriq 25 MG 1 tablet Orally Once a day; Duration: 30 day(s) 04/26/2024 Active ARIPiprazole 5 MG 1 tablet Orally Once a day 06/01/2024 Active Albuterol Sulfate (2.5 MG/3ML) 0.083% 3 ml Inhalation every 6 hrs, prn 06/28/2024 Active Doxycycline Monohydrate 100 MG 1 capsule Orally every 12 hrs; Duration: 10 day(s) 06/28/2024 Active Meloxicam 15 MG 1 tablet Orally Once a day; Duration: 90 days Active Bisoprolol Fumarate 5 MG 1/2 tab orally once a day; Duration: 90 days Active Albuterol Sulfate HFA 108 (9 0 Base) MCG/ACT 1-2 puff Inhalation every 4-6 hrs Active Advair Diskus 100-50 MCG/ACT 1 puff Inha lation Twice a day Active Cyclobenzaprine HCl 10 MG 1 tablet Orall y three times qd prn; Duration: 30 day(s) 12/28/2022 Active Lisinopril 10 MG 1 tablet Orally Once a day; Duration: 90 days Active Venlafaxine HCl ER 75 MG 1 tab(s) orally once daily; Duration: 90 days Active Problems Problem Type SNOMED Code ICD Code Onset Dates Problem Status W/U Status Risk Notes Problem Thyroid nodule (589432925) Thyroid nodule (E04.1) Active confirmed Problem Lung nodule (R91.1) Active confirmed Vital Signs Blood pressure systolic 160 mm Hg 08/03/19 25 Blood pressure diastolic 96 mm Hg 025 Heart Rate 55 /min 08/02/2024 Height 62 in 08/02/2024 Weight 151.8 lbs 08/02/2024 BMI 27.76 kg/m2 08/02/2024 Encounters Encounter Location Date Provider Diagnosis [facility] [address] [id number] 08/02/2024 Frances Butterfield Thyroid nodule E04.1 ; Lung nodule R91.1 ; Pain, joint, shoulder, right M25.511 ; Low back pain at multiple sites M54.50 and BMI 27.0-27.9,adult Z68.27 Assessments Encounter Date Diagnosis (ICD Code) Assessment Notes Treatment Notes Treatment Clinical Notes Section Notes 08/02/2024 Thyroid nodule (ICD-10 - E04.1) 08/02/2024 Lung nodule (ICD-10 - R91.1) 08/02/2024 Pain, joint, shoulder, right (ICD-10 - M25.511) Has full ROM and has muscle relaxants at home. 08/02/2024 Low back pain at multiple sites (ICD-10 - M54.50) 08/02/2024 BMI 27.0-27.9,adult (ICD-10 - Z68.27) Plan Of Treatment Treatment Notes Assessment Notes Pain, joint, shoulder, right Has full RO M and has muscle relaxants at home. Referrals Referral Date Details 08/02/2024 08/02/2024, . Malissa langston Next Appt Details Follow Up: via phone to repo rt test results, Reason: Progress Notes * Bob BUCHANANOB: 8 (64 yo F)Acc No.[id number]:08/02/2024 Progress Notes Patient: Judie MANE Provider: MAYCO Gross :1960 A ge:64 Y S ex:Female Date:08/02/2024 Address:[address] [place], [place] [phone] Pcp:Sandra Young Subjective: * Chief Complaints: * 1 . F/U go over test results. * HPI: E NT/respiratory: The pt is here for a follow-up on Bronchitis. Pt states she is doing much better. Pt states she would like to discuss recent lung CT and bone density results. See pt docs. 64 year old female presents with c/o cough. Denies : sore throat. D enies : Fever. S houlder/Upper arm: The patient states she fell off her bed this morning and strained her right shoulder. Pt states she slipped on her night gown getting out of bed. c/o shoulder pain r ight. * ROS: D ERMATOLOGY: no R melanie. [...] N .K.D.A. Objective: * Vitals: W t: 151.8, Temp: 98.4, BP: 160/96, HR: 55, O2 Sat: 98% on RA, Nurse: JOHN, Ht: 62, Repeat BP:130/82, BMI:27.76. * Examination: G eneral Examination: General Appearance: N AD. H EENT: u nremarkable.?Oral cavity: n o lesions, mucosa moist and WNL, no erythema. N oscar: s upple, no lymphadenopathy. C hest: n ormal shape and expansion. H eart: R SR. L ungs: c lear to auscultation. A bdomen: bowel sounds present, soft and nontender, no organomegaly or masses, no guarding or rigidity. N eurologic Exam: I ntact, gait normal. S kin: n ormal, no rash. P eripheral pulses: n ormal (2+) bilaterally. E xtremities: n o leg edema. S houlder / Upper arm: Shoulder: right. I nspection: n o swelling or redness. P alpation: tenderness on subdeltoid bursa, some posterior tenderness. R leidy of motion: n ormal flexion, extension & rotation. S trength: n ormal. ? Assessment: * Assessment: 1. T hyroid nodule - E04.1 (Primary) 2 . L aquilino nodule - R91.1 ?3. P ain, joint, shoulder, right - M25.511 4 . L ow back pain at multiple sites - M54.50 5 . B [place] 27.0-27.9,adult - Z68.27 Plan: * Treatment: 2.?Lung nodule? Referral To:. Pulmonology??Pulmonary Diseases ?Reason: 3.?Pain, joint, shoulder, right? Notes: Has full ROM and has muscle relaxants at home.?? * Procedure Codes: G 2211 Complex e/m visit add on, 3075F SYST BP GE 130 - 139MM HG, 3079F DIAST BP 80-89 MM HG * Follow Up: v ia phone to report test results * Images: Billing Information: * Visit Code: 58932 Office Visit, Est Pt., Level 4. * Procedure Codes: G2211 Complex e/m visit add on. 3075F SYST BP GE 130 - 139MM HG. 3079F DIAST BP 80-89 MM HG. * Electronic signature of MAYCO Dan on 11/20/2024 at 09:49 AM EDT Sign off status: Pending * Provider: MAYCO Gross Date: 0 08/02/2024 Generated for Katey cochran/James/eTransmitting on: 0 11/20/2024 09:49 AM EDT History and Physical Notes * HPI (History of Present Illness) Category Sub-Category Detail Notes Category Not es ENT/respiratory sore throat cough Fever Shoulder/Upper arm shoulder pain right Examination Category Sub-Category Detail Notes Category Not es General Examination HEENT: unremarkable Heart: RSR Lungs: clear to auscultatio n Abdomen: bowel sounds present , soft and nontender, no organomegaly or masses, no guarding or rigidity Extremities: no leg edema General Appearance: NAD Skin: normal, no rash Neurologic Exam: Intact, gait normal Neck: supple, no lymphaden opathy Oral cavity: no lesions, mucosa m oist and WNL, no erythema Peripheral pulses: normal (2+) bilatera lly Chest: normal shape and exp ansion Shoulder / Upper arm Range of motion: normal flexion, extension & rotation Strength: normal Shoulder: right Inspection: no swelling or redne ss Palpation: tenderness on subdel toid bursa, some posterior tenderness Consultation Request Notes Referral Date Referring Provider Referred Provider Not es 08/02/2024 Frances Butterfield Pulmonology, .
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
[2024-11-20 10:40] VITALS: PULSE 74; PULSE 80
[2024-11-20] MEDS: ALBUTEROL 0.083% 2.5 MG/3 ML NEB IH (10:40)
== END 2024-11-20 23:59 | disposition home or self-care (01) ==
LOC: RT 09:46
PROVIDERS: PCP Physician Assistant; Visit Provider Internal Medicine Pulmonary Disease
DX: J44.9 Chronic obstructive pulmonary disease, unspecified (principal); R94.2 Abnormal results of pulmonary function studies
CPT/HCPCS: 94010; 94618; 94640; 94727; 94729

== ENCOUNTER 2025-01-10 06:46 | Outpatient (CLI) | payer MEDICARE, SELFPAY ==
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
--- OUTSIDE RECORDS SUMMARY | 2024-06-28 05:30 | XMS_ITS ---
[facility] Organization [facility] Address [address] [place] [id number] Care Team Providers Care Intensive Care Unit Registered Nurse Name Role Phone Sandra Young Primary Care Provider GreerRanjeeta Unavailable [phone] Allergies No Known Allergies Results Component Value [...] Nebulizer System All-In-One - as directed 06/29/19 Active Meloxicam 15 MG 1 tablet Orally [...] day; Duration: 90 days Active Vital Signs Weight 148.0 lbs 06/28/2024 Blood pressure systolic 120 mm Hg 06/29/19 Blood pressure diastolic 80 mm Hg 025 Heart Rate 63 /min 06/28/2024 Height 62 in 06/28/2024 BMI 27.07 kg/m2 06/28/2024 Encounters Encounter Location Date Provider Diagnosis [facility] [facility] [address] [phone] 06/28/2024 Frances Greer Abnormal chest CT R9 [...] * Bob BUCHANANOB: 8 (64 yo F)Acc No.[id number]:06/28/2024 Progress Notes Patient: Judie MANE Provider: MAYCO Gross :1960 A ge:64 Y S ex:Female Date:06/28/2024 Address:[address] [place], [place] [address], [id number] Pcp:Sandra Young Subjective: * Chief Complaints: * [...] G 2211 Complex e/[place], [address] [place], [address] CAPILLARY BLOOD DRAW, 329[address] CBC WITH AUTO DIFF, 3074F SYST BP LT 130 MM HG, 3079F DIAST BP 80-89 MM HG * Follow Up: 1 Week * Images: Billing Information: * Visit Code: 83823 Office Visit, Est Pt., Level 4. * Procedure Codes: G2211 Complex e/[place]. [address] [place]. [address] CAPILLARY BLOOD DRAW. 64228 CBC WITH AUTO DIFF. 3074F SYST BP LT 130 MM HG. 3079F DIAST BP 80-89 MM HG. * Electronic signature of MAYCO Dan on 01/10/2025 at 06:56 AM EDT Sign off status: Pending * Provider: MAYCO Gross Date: 0 06/28/2024 Generated for Katey cochran/James/eTransmitting on: 1 06:56 AM EDT History and Physical Notes * [...]
--- OUTSIDE RECORDS SUMMARY | 2024-07-05 05:30 | XMS_ITS ---
Author Organization [facility] Address [address] [place] [id number] Care Team Providers Care Toy Mechanic Name Role Phone Sandra Young Primary Care Provider Greer Frances Unavailable [phone] Allergies No Known Allergies Results Component Value Reference Range Notes CBC Fingerstick (in house) Reviewed date:07/05/2024 09:56:04 AM Interpretation: Performing Lab: Notes/Report: wbc 15.1 3.5 - 10 lym 29.6 15 - 50 mid 7.0 2 - 15 gran 63.4 35 - 80 rbc 5.19 3.5 - 5.5 hgb 15.2 11.5 - 16.5 hct 45.5 35 - 55 mcv 87.7 75 - 100 mch 29.2 25 - 35 mchc 33.4 31 - 38 plat 255 100 - 400 REASON FOR VISIT 1 week F/U Medications Medication SIG (Take, Route, Frequency, Duration) Notes Start Date End Date Status Doxycycline Monohydrate 100 MG 1 capsule Orally every 12 hrs; Duration: 10 day(s) 06/28/2024 Active Nebulizer System All-In-One - as directed 06/29/19 25 Active Albuterol Sulfate (2.5 MG/3ML) 0.083% 3 ml Inhalation every 6 hrs, prn 06/28/2024 Active Myrbetriq 25 MG 1 tablet Orally Once a day; Duration: 30 day(s) 04/26/2024 Active ARIPiprazole 5 MG 1 tablet Orally Once a day 06/01/2024 Active Bisoprolol Fumarate 5 MG 1/2 tab orally once a day; Duration: 90 days Active Advair Diskus 100-50 MCG/ACT 1 puff Inha lation Twice a day Active Meloxicam 15 MG 1 tablet Orally Once a day; Duration: 90 days Active Cyclobenzaprine HCl 10 MG 1 tablet Orall y three times qd prn; Duration: 30 day(s) 12/28/2022 Active Albuterol Sulfate HFA 108 (9 0 Base) MCG/ACT 1-2 puff Inhalation every 4-6 hrs Active Lisinopril 10 MG 1 tablet Orally Once a day; Duration: 90 days Active Venlafaxine HCl ER 75 MG 1 tab(s) orally once daily; Duration: 90 days Active Vital Signs Weight 150.4 lbs 07/05/2024 Blood pressure systolic 128 mm Hg 07/06/19 25 Blood pressure diastolic 70 mm Hg 025 Heart Rate 53 /min 07/05/2024 Height 62 in 07/05/2024 BMI 27.51 kg/m2 07/05/2024 Encounters Encounter Location Date Provider Diagnosis [facility] [address] [facility] [address] [place], [place] [phone] 07/05/2024 Frances Butterfield Bronchitis J40 Assessments Encounter Date Diagnosis (ICD Code) Assessment Notes Treatment Notes Treatment Clinical Notes Section Notes 07/05/2024 Bronchitis (ICD-10 - J40) Symptoms have resolved. She still has abx left. Will recheck a CBC in a few weeks. Plan Of Treatment Treatment Notes Assessment Notes Bronchitis Symptoms have resolv ed. She still has abx left. Will recheck a CBC in a few weeks. Next Appt Details Follow Up: 2 Weeks, Reason: Progress Notes * Bob BUCHANANOB: 8 (64 yo F)Acc No.[id number]:07/05/2024 Progress Notes Patient: Judie MANE Provider: MAYCO Gross :1960 A ge:64 Y S ex:Female Date:07/05/2024 Address:[address] [place], [place] [phone] Pcp:Sandra Young Subjective: * Chief Complaints: * 1 . 1 week F/U. * HPI: G eneral Health screening: Pt sts that she has an appt on 07/27/24 to get her LDCT, Mammogram, and DEXA scan done. E NT/respiratory: cough P t presents today for a 1-week follow up on bronchitis. Pt sts that she is feeling a lot better and is still taking the abx. Pt sts that she has improved immensely. * ROS: D ERMATOLOGY: no R melanie. [...] tablet Orally Once a day , Taking Doxycycline Monohydrate 100 MG Capsule 1 capsule Orally every 12 hrs , Taking Albuterol Sulfate (2.5 MG/3ML) 0.083% Nebulization Solution 3 ml Inhalation every 6 hrs, prn , Taking Nebulizer System All-In-One - Miscellaneous as directed , Medication List reviewed and reconciled with the patient * Allergies: N .K.D.A. Objective: * Vitals: W t: 150.4, Temp: 98.0, BP: 128/70, HR: 53, O2 Sat: 97% on RA, Nurse: PATTIE, Ht: 62, BMI:27.51. * Examination: E NT/Respiratory: General Appearance: N AD. E ars: a uditory canals normal bilaterally, TM's WNL. N ose : n ormal, no lesions, nares patent. S inuses : non tender bilaterally. O ral cavity : n o erythema or exudate seen on pharynx. N oscar : no cervical lymphadenopathy. H eart : R RR, normal S1 S2, no murmurs. L ungs: c lear to auscultation bilaterally. Assessment: * Assessment: 1. Lilia lechuga - [facility] (Primary) Plan: * Treatment: Value Reference Range w bc 15.1 3.5 - 10 * l ym 29.6 15 - 50 * m id 7.0 2 - 15 * g ran 63.4 35 - 80 * r bc 5.19 3.5 - 5.5 * h gb 15.2 11.5 - 16.5 * h ct 45.5 35 - 55 * m cv 87.7 75 - 100 * m ch 29.2 25 - 35 * m chc 33.4 31 - 38 * p lat 255 100 - 400 * Ada Horan 07/05/2024 09:5 0:38 AM > results reviewed w/ pt in office Notes: Symptoms have resolved. She still has abx left. Will recheck a CBC in a few weeks.? * Procedure Codes: G 2211 Complex e/[place], [address] [place], [address] CAPILLARY BLOOD DRAW, 54474 CBC WITH AUTO DIFF, 3074F SYST BP LT 130 MM HG, 3078F DIAST BP < 80 MM HG * Follow Up: 2 Weeks * Images: Billing Information: * Visit Code: 40909 Office Visit, Est Pt., Level 3. * Procedure Codes: G2211 Complex e/[place]. [address] [place] [address] CAPILLARY BLOOD DRAW. 32790 CBC WITH AUTO DIFF. 3074F SYST BP LT 130 MM HG. 3078F DIAST BP < 80 MM HG. * Electronic signature of MAYCO Dan on 01/10/2025 at 06:56 AM EDT Sign off status: Pending * Provider: MAYCO Gross Date: 0 07/05/2024 Generated for Katey cochran/James/eTransmitting on: 1 06:56 AM EDT History and Physical Notes * HPI (History of Present Illness) Category Sub-Category Detail Notes Category Not es ENT/respiratory cough Pt presents toda y for a 1-week follow up on bronchitis. Pt sts that she is feeling a lot better and is still taking the abx. Pt sts that she has improved immensely General Health screening Pt sts that she has an appt on 07/27/24 to get her LDCT, Mammogram, and DEXA scan done Examination Category Sub-Category Detail Notes Category Not es ENT/Respiratory Oral cavity : no erythema or exudate s een on pharynx Sinuses : non tender bilateral ly Ears: auditory canals norm al bilaterally, TM's WNL Neck : no cervical lymphade nopathy Heart : RRR, normal S1 S2, n o murmurs Lungs: clear to auscultatio n bilaterally General Appearance: NAD Nose : normal, no lesions, nares patent
--- OUTSIDE RECORDS SUMMARY | 2024-08-02 05:00 | XMS_ITS ---
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 Referred Provider Specialty Pulmonary [facility] General Notes Frances Butterfield 08/02 1:34:34 PM > Needs an appt at [facility], Parul Aldana 08/02/2024 01:36:11 PM > faxed with documentation to [facility] Pulmonology; 09/07 at 10:40am Referral Priority Routine [...] W/U Status Risk Notes Problem Thyroid nodule (542092284) Thyroid nodule (E04.1) Active confirmed Problem Solitary nodule of lung (361065799) Lung nodule (R91.1) Active confirmed Vital Signs Weight 151.8 lbs 08/02/2024 Blood pressure systolic 160 mm Hg 08/03/19 25 Blood pressure diastolic 96 mm Hg 025 Heart Rate 55 /min 08/02/2024 Height 62 in 08/02/2024 BMI 27.76 kg/m2 08/02/2024 Encounters Encounter Location Date [facility] [address] [phone] 08/02/2024 Frances Butterfield Thyroid nodule E04.1 ; [...] Referrals Referral Date Details 08/02/2024 08/02/2024, . Pulpauly langston Next Appt Details Follow Up: via phone to repo rt test results, Reason: Progress Notes * Bob BUCHANANOB: 8 (64 yo F)Acc No.[id number]:08/02/2024 Progress Notes Patient: Judie MANE Provider: MAYCO Gross :1960 A ge:64 Y S ex:Female Date:08/02/2024 Address:[address] [place], [place] [phone] Pcp:Sandra Young Subjective: * Chief Complaints: * [...] multiple sites - M54.50 5 . B [place] 27.0-27.9,adult - Z68.27 Plan: * Treatment: 2.?Lung [...] * Images: Billing Information: * Visit Code: 27620 Office Visit, Est Pt., Level 4. * Procedure Codes: G2211 Complex e/m visit add on. 3075F SYST BP GE 130 - 139MM HG. 3079F DIAST BP 80-89 MM HG. * Electronic signature of MAYCO Dan on 01/10/2025 at 06:57 AM EDT Sign off status: Pending * Provider: MAYCO Gross Date: 0 08/02/2024 Generated for Carliei dimas/Fagardeniag/eTransmitting on: 1 06:57 AM EDT History and [...]
--- OUTSIDE RECORDS SUMMARY | 2025-01-03 06:45 | XMS_ITS ---
Author [facility] Address [address] [place] [id number] Care Team Providers Care Rigger Helper Name Role Phone Sandra Young Primary Care Provider Frances Butterfield Unavailable [phone] Allergies No Known Allergies REASON FOR VISIT poss hernia Medications Medication SIG (Take, Route, Frequency, Duration) Notes Start Date End Date Status Albuterol Sulfate HFA 108 (90 Base) MCG/ACT 1-2 puff Inhalation every 4-6 hrs Active Advair Diskus 100-50 MCG/ACT 1 puff Inhalation Twice a day Active Meloxicam 15 MG 1 tablet Orally Once a day; Duration: 90 days Active Cyclobenzaprine HCl 10 MG 1 tablet Orall y 3 times a day, prn 12/28/2022 Active ARIPiprazole 5 MG 1 tablet Orally Once a day 06/01/2024 Active Bisoprolol Fumarate 5 MG 1/2 tab orally once a day; Duration: 90 days Active Lisinopril 10 MG 1 tablet Orally Once a day; Duration: 90 days Active Venlafaxine HCl ER 75 MG 1 tab(s) orally once daily; Duration: 90 days Active Nebulizer System All-In-One - as directed COPD J44.9 06/28/2024 Active Vitamin D 25 MCG (1000 UT) 1 tablet Oral ly Once a day Active Albuterol Sulfate (2.5 MG/3ML) 0.083% 3 ml Inhalation every 6 hrs, prn 06/28/2024 Active Doxycycline Monohydrate 100 MG 1 capsule Orally every 12 hrs; Duration: 10 day(s) 06/28/2024 Active Myrbetriq 25 MG 1 tablet Orally Once a day; Duration: 30 day(s) 04/26/2024 Active Immunizations Vaccine Route Administration Date Status Comme nts Fluzone High Dose (65yr and older) IM Intramuscular 01/03/2025 Administered Prevnar (PCV20) IM Intramuscular 01/03/2025 Administered Vital Signs Weight 142.4 lbs 01/03/2025 Blood pressure systolic 122 mm Hg 01/04/20 25 Blood pressure diastolic 72 mm Hg 025 Heart Rate 57 /min 01/03/2025 Height 62 in 01/03/2025 BMI 26.04 kg/m2 01/03/2025 Encounters Encounter Location Date Provider Diagnosis [facility] [address] [facility] [address] [place], [place] [id number] 01/03/2025 Frances Butterfield Encounter for immunization Z23 ; Acquired abdominal wall defect M95.8 ; Muscle spasm M62.838 and BMI 26.0-26.9,adult Z68.26 Assessments Encounter Date Diagnosis (ICD Code) Assessment Notes Treatment Notes Treatment Clinical Notes Section Notes 01/03/2025 Encounter for immunization (ICD-10 - Z23) 01/03/2025 Acquired abdominal wall defect (ICD-10 - M95.8) 01/03/2025 Muscle spasm (ICD-10 - M62.838) 01/03/2025 BMI 26.0-26.9,adult (ICD-10 - Z68.26) Plan Of Treatment Medication Medication Name Sig Start Date Stop Date Notes Cyclobenzaprine HCl 10 MG 1 tablet Orall y 3 times a day, prn 12/28/2022 Pending Test Test Name Order Date CT Scan : Abd & Pelvis w/o contrast 04/2024 Next Appt Details Follow Up: via phone to repo rt test results, Reason: Progress Notes * Bob BUCHANANOB: 8 (64 yo F)Acc No.[id number]:01/03/2025 Progress Notes Patient: Judie MANE Provider: MAYCO Gross :1960 A ge:64 Y S ex:Female Date:01/03/2025 Address:[address] [place], [place] [address], [id number] Pcp:Sandra Young Subjective: * Chief Complaints: * 1 . Poss hernia. * HPI: G astroenterology: 64 year old female presents with c/o Hernia P t states she thinks she has a hernia. Pt states this started last week. Pt states she can bend over, and she has a knot on her stomach. H PI: Patient is here today for P t states she wants a flu shot.? * ROS: D ERMATOLOGY: no R melanie. n o H carolyn. G ASTROENTEROLOGY: no N ausea. n o V omiting. n o D iarrhea.? U ROLOGY: no B lood in urine. [...] Sexually active: yes. * Medications: T aking Vitamin D 25 MCG (1000 UT) Tablet 1 tablet Orally Once a day , Taking Venlafaxine HCl ER [...] System All-In-One - Miscellaneous as directed , Notes to Pharmacist: COPD J44.9, Medication List reviewed and reconciled with the patient * Allergies: N .K.D.A. Objective: * Vitals: W t: 142.4, Temp: 97.9, BP: 122/72, HR: 57, Nurse: pe, Ht: 62, BMI:26.04. * Examination: G eneral Examination: General Appearance: N AD. H EENT: u nremarkable.?Oral cavity: n o lesions, mucosa moist and WNL, no erythema. N oscar: s upple, no lymphadenopathy. C hest: n ormal shape and expansion. H eart: R SR. L ungs: c lear to auscultation. A bdomen: n ormal, bowel sounds present, soft, no guarding or rigidity, not distended, there is a small defect in the lower right abdominal wall that is ttp. S kin:?normal, no rash. Assessment: * Assessment: 1. E ncounter for immunization - Z23 (Primary) 2 . A cquired abdominal wall defect - M95.8 3 . M uscle spasm - M62.838 4 . B ND 26.0-26.9,adult - Z68.26 Plan: * Treatment: 2.?Muscle spasm? Refill Cyclobenzaprine HCl Tablet, 10 MG, 1 tablet, Orally, 3 times a day, prn, 60, Refills 1.?? * Immunizations: Fluzone High Dose (65yr and older) : 0.5 mL (Route: Intramuscular) given by NEVIN Regan , [employer] on Left Deltoid (Encounter for immunization) Prevnar (PCV20) : 0.5 mL (Route: Intramuscular) given by NEVIN Regan , [employer] on Right Deltoid (Encounter for immunization) * Procedure Codes: G 2211 Complex e/m visit add on, G8420 BMI<30 AND >=22 CALC & DOCU, G8783 BP SCR PRFRM RCMDD DEFIND SCR INTVL, G8752 MOST RECENT SYSTOLIC BP < 140MM HG, G8754 MOST RECENT DIASTOLIC BP < 90MM HG, 3074F SYST BP LT 130 MM HG, 3078F DIAST BP < 80 MM HG * Follow Up: v ia phone to report test results * Images: Billing Information: * Visit Code: 06973 Office Visit, Est Pt., Level 3. * Procedure Codes: G2211 Complex e/m visit add on. G8420 BMI<30 AND >=22 CALC & DOCU. G8783 BP SCR PRFRM RCMDD DEFIND SCR INTVL. G8752 MOST RECENT SYSTOLIC BP < 140MM HG. G8754 MOST RECENT DIASTOLIC BP < 90MM HG. 3074F SYST BP LT 130 MM HG. 3078F DIAST BP < 80 MM HG. * Electronic signature of MAYCO Dan on 01/10/2025 at 06:56 AM EDT Sign off status: Pending * Provider: MAYCO Gross Date: Generated for Katey cochran/James/Jamaransmitting on: 06:56 AM EDT History and Physical Notes * HPI (History of Present Illness) Category Sub-Category Detail Notes Category Not es Gastroenterology Hernia Pt states she t hinks she has a hernia. Pt states this started last week. Pt states she can bend over, and she has a knot on her stomach HPI Patient is here today for Pt sta maia she wants a flu shot Examination Category Sub-Category Detail Notes Category Not es General Examination HEENT: unremarkable Heart: RSR Lungs: clear to auscultatio n Abdomen: normal, bowel sounds present, soft, no guarding or rigidity, not distended, there is a small defect in the lower right abdominal wall that is ttp General Appearance: NAD Skin: normal, no rash Neck: supple, no lymphaden opathy Oral cavity: no lesions, mucosa m oist and WNL, no erythema Chest: normal shape and exp ansion
--- NOTE | 2025-01-10 06:52 | CT_ITS ---
FINAL REPORT TECHNIQUE: Thin section axial images were obtained from the lung bases to the pubic symphysis without IV contrast. Coronal reconstruction images were obtained from the axial data. Exam was performed using dose reduction technique. CLINICAL HISTORY: ACQUIRED ABDOMINAL WALL DEFECT COMPARISON: 12/04/2020 FINDINGS: Lung bases are clear. There are no renal or ureteral stones. There is no hydronephrosis or perinephric stranding. The gallbladder is present. The remaining unenhanced solid abdominal organs are unremarkable. There is no evidence of small bowel obstruction. The appendix is not visualized. There are no secondary signs of appendicitis. There is pandiverticulosis without evidence of diverticulitis. There is no small bowel obstruction. Uterus is small. There is no lymphadenopathy or ascites. Anterior abdominal wall appears intact. There is a infrarenal abdominal aortic aneurysm measuring 33 mm. No acute osseous abnormality is identified. IMPRESSION: No anterior abdominal wall defect identified. No acute abnormality of the abdomen or pelvis. Abdominal aortic aneurysm measuring 33 mm. Reviewed, Interpreted and Dictated by Jazmín Butler MD Transcribed by Kianna Taylor Authenticated and [facility]
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
== END 2025-01-10 23:59 | disposition home or self-care (01) ==
LOC: RAD 06:46
PROVIDERS: PCP Physician Assistant; Visit Provider Physician Assistant
DX: I71.40 Abdominal aortic aneurysm, without rupture, unspecified (principal); M95.8 Other specified acquired deformities of musculoskeletal system
CPT/HCPCS: 74176

== ENCOUNTER 2025-04-01 16:02 | Outpatient (CLI) | payer MEDICARE, SELFPAY ==
--- NOTE | 2025-04-01 16:09 | XR_ITS ---
PROCEDURE INFORMATION: Exam: XR Chest Exam date and time: 04/01/2025 4:05 PM Age: 65 years old Clinical indication: Other: Chest congestion TECHNIQUE: Imaging protocol: Radiologic exam of the chest. Views: 2 views. COMPARISON: CT CHEST W CON 07/27/2024 10:13 AM FINDINGS: Lungs: The lungs appear clear. No focal areas of consolidation. Pleural spaces: No pleural effusions. Negative for pneumothorax. Heart/Mediastinum: Cardiac silhouette and pulmonary vasculature are within range of normal. Bones/joints: There is no evidence of acute fracture. There is a minor thoracolumbar scoliosis. IMPRESSION: Negative for an acute cardiopulmonary abnormality. Stable chest radiograph.
== END 2025-04-01 23:59 ==
LOC: RAD 16:04
PROVIDERS: PCP Physician Assistant; Visit Provider Nurse Practitioner
DX: R09.89 Other specified symptoms and signs involving the circulatory and respiratory systems (principal)
CPT/HCPCS: 71046